=== PATIENT | female | born 1980 | race Caucasian/White ===

== ENCOUNTER 2024-06-13 14:11 | Inpatient (IN) | payer OTHER, SELFPAY ==
--- NOTE | 2024-06-13 11:36 | ED.GENMED ---
History of Present Illness
General
Chief Complaint: Musculo-Skeletal Complaint
Time Seen by Provider: 06/13/24 11:21
History of Present Illness
History of Present Illness:
HPI: The patient presents with severe left hip pain that recently acutely worsened and started about a week ago. She states that she felt that her hip 'popped'. He denies any direct trauma. She has tremendous difficulty walking at this time. She
is on methadone (being weaned down currently on 86 mg daily) and did not take her methadone yet today. She notes the pain is primarily in the medial aspect but also radiates laterally as well.
EXAM:
GENERAL: Well appearing but appears rather uncomfortable
HEENT: Moist oral mucosa
CARDIOVASCULAR: No murmurs, normal heart rate, regular rhythm, No chest wall tenderness
PULMONARY: No respiratory distress, breath sounds are clear and equal
ABDOMEN: Soft with no peritoneal signs, no tenderness
NEUROLOGIC: Excellent strength all extremities, no coordination deficits
PSYCHIATRIC: Appropriate mental status, normal insight and judgement
EXTREMITIES: Markedly decreased active range of motion at the left hip but is currently holding in flexion. Any further active flexion does cause significant pain, she also has pain with passive internal and external rotation of the hip, there is
no findings to suggest septic joint.
SKIN: No rash, no lesions
TIME OF INITIAL ENCOUNTER: 11:30 AM
NUMBER AND COMPLEXITY OF PROBLEMS ADDRESSED AT THE ENCOUNTER
� Chronic conditions affecting care: Currently on methadone, anxiety, anemia
� Acute Exacerbation and/or Progression of Chronic Illness: This is an acute problem
� Differential Diagnosis includes: Hip flexor strain, osteoarthritis, tendinitis, highly doubt septic joint
AMOUNT AND/OR COMPLEXITY OF DATA TO BE REVIEWED AND ANALYZED
� I performed an independent evaluation of and my interpretation is:
EKG:
CT: Pending
X-rays: I personally viewed x-ray of the left hip which shows fracture
Laboratory Studies: CBC unremarkable
Other:
� Review of other/old records: The patient has history of DVT seen here in March 16 treated with Eliquis
� Clinical information was obtained by an independent historian: I spoke to significant other at bedside
� Prescriptions/Medications Considered but not given:
� Further testing considered but not performed:
RISK OF COMPLICATIONS AND/OR MORBIDITY OR MORTALITY OF PATIENT MANAGEMENT
� Social determinants of health affecting care: Lives at home
� Discussion with other providers: Discussed with Dr. Parekh CT imaging for further assessment and plans OR either tomorrow or Monday.
� Escalation of care including admission/observation vs risk of discharge considered: The patient was initially given IM Toradol eyes initially had low suspicion for fracture given her age and no significant mechanism. We did
arrange for methadone to be after pharmacy staff did confirm her dosing. X-ray does show left hip fracture.
Past History
Past History
ED Past Medical History: None
ED Past Surgical History: None
Phy Exam
Physical Exam
Physical Exam:
See HPI
Course
Orders/Labs/Results
Orders:
Orders
06/13/24 11:09
Hip, Left 2-3 Views [CR Hip - LT w/wo Pel 2-3 Vw*] Urgent
Comment:
Reason For Exam: hip pain
Include a pelvis x-ray?: Yes
06/13/24 11:35
Ketorolac [Toradol] 30 mg IM NOW STA
06/13/24 11:58
Methadone HCl [Methadone 100 mg/10 ml] 88 mg PO NOW STA
06/13/24 12:[address] Pelvis W/o Iv Contrast Urgent
Comment:
Reason For Exam: eval L hip fx
Test Result ONCE
06/13/24 12:26
Complete Blood Count/With Diff Urgent
06/13/24 13:27
Basic Metabolic Panel Urgent
HCG, Serum Qualitative Screen Urgent
Magnesium Urgent
Phosphorus Urgent
Comment: MAG AND PHOS ADDED ON BY FLOOR 2:10PM 06-13-24
Vitamin D, 25-Oh Urgent
06/13/24 13:43
Admit/Transfer Patient As Directed
Co-Sign Provider:
Level of Care: Inpatient admission
Assign to:: Telemetry
Physician / Group: Kannan
Diagnosis: Hip Fracture
Reason for Telemetry: Arrhythmia
Date to Stop Telemetry: 06/16/24
Time to Stop Telemetry: 11:00
Reason for Hospitalization: Hip Fracture
Expected length of stay greater than two midnights?: Yes
ELOS- Estimated Length of Stay in days: 3
I certify the patient meets the requirements for IP care: Yes
06/13/24 13:44
PRN Pain Medication Management As Directed
May give lesser potent ordered pain med per pt: Yes
preference::
Protocol:: Medication orders for pain may be administered in a
manner that supports deferring to patient preference
when the pt is:
- Requesting an ordered lesser potent pain medication.
Least to most potent pain medications are defined
as: acetaminophen < NSAID < tramadol < opioids
(morphine, oxycodone, hydromorphone).
- Requesting a lesser dose of the same medication IF
ORDERED.
- Requesting a less intrusive route of administration
if both routes are prescribed by the provider (PO <
IV).
06/13/24 13:45
Code Status As Directed
Resuscitation Status: Full Code
06/13/24 13:48
Add On- LAB Routine
Tests Added?: vitamin d-oh
06/13/24 13:54
ECG [Electrocardiogram (*1)] Urgent
Reason for Study: QTc Monitoring
06/13/24 14:08
HYDROmorphone [Dilaudid] 0.5 mg IV NOW STA
06/13/24 14:11
Add On- LAB Routine
Tests Added?: magnesium, phosphorous
06/13/24 15:20
0.9% Sodium Chloride [Nss (Preservative Free)] See Protocol IV PRN PRN
FOLic ACID [Folvite] 1 mg 0.9% Sodium Chloride 50 ml [Nss] 50 ml IV DAILYPRN
Lorazepam [Ativan] 1 mg IV Q1HPRN PRN
Lorazepam [Ativan] 1 mg PO Q2HPRN PRN
Lorazepam [Ativan] 2 mg IV Q1HPRN PRN
06/13/24 15:20
Case Management Consult Once
Case Management Consult: Other
Comment: Substance abuse counseling
DIETARY CONSULT Routine
Reason for Consult: Nutrition support, possible refeeding guidelines
Activity As Directed
Activity Level: Out of Bed-Early Mobility
With Assistance
I&O [Intake/ Output] As Directed
Frequency: q12h
MSAS SCORE As Directed
MSAS Score 0-4: Repeat MSAS every 2 hours until 0-4 for three consecutive assessments, then every 4 hours x 48
hours.
MSAS Score 5-7: For MILD withdrawl symptoms. Repeat MSAS and RASS every 2 hours
MSAS Score 8-11: For MODERATE withdrawal symptoms. Repeat MSAS and RASS every 1 hour. Consider ICU or IMU
level of care.
MSAS Score > 11: For SEVERE withdrawal symptoms. Repeat MSAS and RASS every 1 hour. Notify provider, consider
ICU level of care.
MSAS Additional Instructions: If no improvement or no decrease in score from severe to moderate within 12
hours, consult psychiatry
MSAS Notify Provider: Notify provider if patient requires more than 10 mg of Lorazepam in eight hour period.
Pneumatic Compression Sleeves As Directed
Type: Knee high
Teds [Anti-embolism (DANIELLE) Hose] As Directed
Type: Knee high
Vital Signs As Directed
Frequency: Per unit guidelines
Weight Bearing Status As Directed
Weight bearing to: Left lower extremity
Type: Non Wt. bearing
DX Deep Vein Thrombosis Video Routine
06/13/24 16:00
Acetaminophen [Tylenol] 1,000 mg PO TID
06/13/24 18:00
Ketorolac [Toradol] 15 mg IV Q6HPRN PRN
06/13/24 20:00
Thiamine Injection 200 mg IV Q12
06/14/24 06:34
Basic Metabolic Panel IN AM
Complete Blood Count/No Diff IN AM
Magnesium IN AM
PTT IN AM
Prothrombin Time IN AM
06/14/24 08:00
Donepezil [Aricept] 5 mg PO DAILY
FOLic ACID [Folvite] 1 mg PO DAILY
Methadone HCl [Methadone 100 mg/10 ml] 88 mg PO DAILY
Methylphenidate HCl [Ritalin] 60 mg PO DAILY
06/14/24 13:51
Ot Eval And Treat Routine
Pt Eval And Treat Routine
Activity Level: Out of Bed-Early Mobility
06/16/24 11:00
DC Protocol for Telemetry ONCE
06/16/24 20:00
Thiamine HCl [Vitamin B1] 100 mg PO BID
Abnormal Lab Results
06/13/24 06/13/24
12:26 13:27
RBC 4.14 L 10^6/uL
(4.20-5.40)
Abs Immat Gran (auto) 0.1 H 10^3/uL
(0-0.05)
Absolute Neuts (auto) 7.0 H 10^3/uL
(1.4-6.5)
Absolute Lymphs (auto) 0.9 L 10^3/uL
(1.2-3.4)
Immature Gran % 0.9 H %
(0-0.5)
Neutrophils % 82.2 H %
(42.2-75.2)
Lymphocytes % 10.6 L %
(20.5-51.1)
Carbon Dioxide 20 L mmol/L
(22-30)
Creatinine 0.4 L mg/dL
(0.6-1.0)
Glucose 146 H mg/dl
(70-99)
Vitamin D 25-Hydroxy 19.8 L ng/mL
(30-80)
06/13/24 12:26
06/13/24 13:27
Vital Signs
Initial and Last Documented VS:
Initial Vital Signs
Temp Pulse Resp Pulse Ox
98.4 F 94 18 98
06/13/24 10:33 06/13/24 10:33 06/13/24 10:33 06/13/24 10:33
Last Documented Vital Signs
Temp Pulse Resp BP Pulse Ox
98.4 F 78 20 134/79 97
06/14/24 07:00 06/14/24 07:00 06/14/24 07:00 06/14/24 07:00 06/14/24 07:45
*Critical Care Note
Total Time (30-74mins, 75-104mins- exclusive of procedures): Not Applicable
ED Attending Note
-
Portions of this chart may have been created with voice recognition software.� Occasional wrong word or��sound alike� substitutions may have occurred due to the inherent limitations of voice recognition software.
Discharge Plan
Departure
Patient Disposition: Admit
Date of Disposition: 06/13/24
Time of Disposition: 13:00
Presentation/result/management discussed w/ accepting MD/DO: Hospitalist
Patient with high blood pressure during this ER visit?: Yes
Discharge Problem:
Hip fracture
Interventions
Interventions:
*Risk Screen - Suicide Last Done: 06/13/24 10:33
*General Assessment Last Done: 06/13/24 10:33
*Neglect/Abuse Screening Last Done: 06/13/24 10:33
ED- Fall Risk Assessment Last Done: 06/13/24 15:23
*ED COVID-19 Vaccine History Last Done: 06/13/24 15:23
*Nursing Disposition Last Done: 06/13/24 15:23
ED-Musculoskeletal Assessment Last Done: 06/13/24 13:28
Discharge Date and Time
Discharge Date/Time: 06/13/24 15:24
[2024-06-13] MEDS: TORADOL 30 MG IM (12:10)
[2024-06-13] MEDS: METHADONE 100 MG/10 ML 88 MG PO (12:17)
[2024-06-13 12:51] LABS: % Basophils 0.7 % (0-2); % Eosinophils 0.8 % (0-6); % Immature Granulocytes 0.9 % (0-0.5); % Lymphocytes 10.6 % (20.5-51.1); % Monocytes 4.8 % (1.7-9.3); % Neutrophils 82.2 % (42.2-75.2); Absolute Basophils 0.1 10^3/uL (0-0.2); Absolute Eosinophils 0.1 10^3/uL (0-0.7); Absolute Immature Granulocytes 0.1 10^3/uL (0-0.05); Absolute Lymphocytes 0.9 10^3/uL (1.2-3.4); Absolute Monocytes 0.4 10^3/uL (0.1-0.6); Hematocrit 37.7 % (37.0-47.0); Hemoglobin 12.7 g/dL (12.0-16.0); Mean Corp Hgb Conc. 33.7 g/dL (33.0-37.0); Mean Corpuscular Hgb 30.7 pg (27.0-31.0); Mean Corpuscular Volume 91.1 fL (81.0-99.0); Mean Platelet Volume 9.7 fL (7.4-10.4); Nucleated Red Blood Cells % 0 %; Platelet Count 305 10^3/uL (130-400); Red Blood Cell Count 4.14 10^6/uL (4.20-5.40); Red Cell Dist. Width 13.8 % (11.5-14.5); White Blood Cell Count 8.5 10^3/uL (4.8-10.8)
--- NOTE | 2024-06-13 13:17 | HPS.HSE ---
Addendum entered and electronically signed by Christina Delgado PA-C 06/13/24 15:00:
Correction:
Patient now reports not taking Lamictal for several weeks - Would not resume at this time.
Original Note:
Family Physician
-
Family Physician: Ladarius Santoyo
Chief Complaint
-
Left Hip Pain
History of Present Illness
Patient is a 43 y/o female past medical history of bipolar disorder and opioid use disorder who presents with left hip pain. Patient report she has been experiencing some hip pain for about a week. Today when she was walking out to the car she
heard a 'pop' and developed acute worsening of the pain. She then felt a second 'pop' and fell catching herself with hands. She is unable to ambulate and presented to the emergency department for evaluation.
Medical History
Past Medical History
Past Medical History: Reports Other
Additional Past Medical History:
Anxiety / Depression / Bipolar Disorder
Opioid Use Disorder
ADHD
Past Surgical History: Reports Gynocological ( Section, Salpingectomy)
Social History
Tobacco: Vaping
Alcohol: Daily (6 cans of beer nightly)
Drug: Former User
Family History
Family History: Not pertinent
Allergies / Home Medications
Allergies reflects when Allergies were last updated in [facility].
Home Medications with original date entered in [facility]
Allergy/Medication List:
Allergies
Allergy/AdvReac Type Severity Reaction Status Date / Time
No Known Allergies Allergy Verified 06/13/24 10:33
Home Medications
methadone 10 mg/5 mL oral solution 88 mg PO DAILY ##0 05/01/18
donepezil 5 mg tablet 5 mg PO DAILY 06/13/24
methylphenidate HCl 20 mg tablet 20 mg PO TID 06/13/24
Review of Systems
-
A 12 point ROS was completed and negative except as noted: Yes
Constitutional: Denies Fever or Chills
Respiratory: Denies Cough or Trouble Breathing
Cardiac: Denies Chest Pain or Palpitations
Abdomen/GI: Reports Constipated (Intermittent); Denies Abdominal Pain, Nausea or Vomiting
Physical Exam
Vital Signs
Vital Signs
Temp Pulse Resp Pulse Ox
98.4 F 94 18 98
06/13/24 10:33 06/13/24 10:33 06/13/24 10:33 06/13/24 10:33
Physical Exam
General: Comfortable and Conversant
HEENT: Anicteric and Moist mucous membranes
Respiratory: Clear and Non Labored Respirations
Cardiac: S1/S2 and Regular Rhythm
GI: Soft, Non Tender and Other (Protuberant)
Rectal: Deferred by Provider
Musculoskeletal: No Clubbing, No Cyanosis, No Edema and Other (Decreased range of motion left hip due to pain)
Skin: Warm and Dry
Neuro: Awake, Alert, Oriented and Nonfocal/grossly intact
Psych: Calm
Laboratory Results
-
06/13/24 12:26
Data Reviewed
-
Diagnostic Radiology: Report Reviewed by me
Lab Data: Labs Reviewed by me
Impression/Plan
-
Left Hip Fracture
-Consult Ortho
-Check CT Scan
-Pain management will use Toradol for mild pain, Dilaudid for moderate/severe pain
Opioid Use Disorder
-Continue Methadone
ADHD
-Continue methylphenidate if patient bring from home
-Continue donepezil
Anxiety / Depression / Bipolar Disorder
-Continue Lamictal
Alcohol Use Disorder
-Continue alcohol withdrawal protocol
DVT proph: SCDs
Code Status: Full Code
[2024-06-13 13:24] VITALS: BP 132/82
[2024-06-13 13:49] LABS: HCG, Serum Qualitative Screen Negative
--- NOTE | 2024-06-13 13:50 | W.PN.UPDATE ---
Update Note
Progress Note Update
This is an addendum to H&P written by KRISTYN Delgado
I saw and examined the patient.
The DRY LUMBER GRADER's note was reviewed and I agree with the note.
Comment:
Ms. Sanam Juárez is a 43 yo woman with hx oxycodone abuse now on Methadone, who presents to the ER with severe left hip pain. She denies direct trauma. She noticed discomfort about a week ago with severe worsening today.
Triage VS: T 98.4, P 94, RR 18, SpO2 98%
On exam patient appears uncomfortable 2/2 pain, no LE swelling, lungs clear.
LABS: WBC 8.5, Hg 12.7, PLT 305, Na 137, K+ 4.4, CO2 20, BUN 8, Cr 0.4, Glucose 146
Hip X-Ray
IMPRESSION:
Acute comminuted transcervical fracture of the left femoral neck without significant displacement or angulation. No dislocation.
Cortical thickening of the visualized left femur which appears relatively symmetric. There is no focal lesion. This finding is nonspecific, and can be secondary to medications or normal biomechanical stresses. The right proximal femur is not
visualized, so contralateral comparison cannot be made.
Left Hip Fracture
-without history of trauma. concern for Osteoporosis -may be related to chronic opiate/methadone use?/alcohol use - check vitamin d-oh
-Dr. Quinones aware of admission, recommending CT Hip
-for pain control - will continue home Methadone. Patient looks to be in significant discomfort - OK with receiving opiates for pain here
Alcohol Abuse
-patient drinks 6 beers/night
-MSAS
-monitor electrolytes
-IVF
Hx Opiate Abuse on Methadone
DVT PPx SCD
76 minutes spent on patient care
[2024-06-13 13:52] LABS: Blood Urea Nitrogen 8 mg/dl (7-17); Calcium 9.2 mg/dl (8.4-10.2); Carbon Dioxide 20 mmol/L (22-30); Chloride 102 mmol/L (98-107); Glucose 146 mg/dl (70-99); Potassium 4.4 mmol/L (3.5-5.1); Sodium 137 mmol/L (135-145); eGFR > 60.00
[2024-06-13] MEDS: DILAUDID 0.5 MG IV ×3 (14:30→17:06)
[2024-06-13] MEDS: NSS 1000 IV ×2 (14:31→15:58)
[2024-06-13 14:47] LABS: Magnesium 1.8 mg/dl (1.6-2.3); Phosphorus 2.6 mg/dl (2.5-4.5)
[2024-06-13 15:05] LABS: Vitamin D, 25-OH*** 19.8 ng/mL (30-80)
[2024-06-13 15:47] VITALS: BP 134/84; BMI 34.6
[2024-06-13] MEDS: TYLENOL 1000 MG PO ×2 (16:08→21:20)
--- NOTE | 2024-06-13 16:44 | CON.ORTHO ---
Consultation
-
Date/Time Consultation Performed: [id number] 16:44
Requesting Provider: Monique
Performing Provider: Demarcus Vanegas
Reason for Consultation: left hip fracture
Consultation - Orthopedics
History
Ms Juárez is a 43F with a history of bipolar, opioid abuse with a one week history of left hip pain with acute exacerbation this morning. She report sleeping with her leg off the couch and awakening to left hip pain one week prior to presentation,
but she was able to ambulate with assistance of a crutch. She did not seek treatment for this. This morning when exiting her home she reports atraumatic onset of left hip pain which caused her to fall. She was unable to ambulate and was brought to
the ED. XR and CT obtained there were notable for left hip basicervical femoral neck fracture. She denies tripping or stumbling, twisting the hip, or any other provocative action. She denies open wounds, bleeding, numbness or tingling in her
affected extremity. She has not had any prior left hip injury or surgery, but she does have a history of a left Achilles rupture treated non-operatively.
Examination: left lower extremity
Inspection: skin intact without erythema
Palpation: tenderness to palpation about left hip, medial knee
Range of motion: deferred secondary to pain
Strength: Deferred at hip and knee, 5/5 ankle plantar/dorsiflexion, EHL/FHL
Stability; Knee stable to varus/valgus stress
Sensation: Intact to light touch in all dermatomes
Vascular:Palpable DP/PT pulses, brisk capillary refill
Allergies / Home Medications
Allergy/AdvReac Type Severity Reaction Status Date / Time
No Known Allergies Allergy Verified 06/13/24 10:33
�Medication �Instructions �Recorded
methadone 10 mg/5 mL oral solution 88 mg PO DAILY ##0 05/01/18
donepezil 5 mg tablet 5 mg PO DAILY 06/13/24
methylphenidate HCl 20 mg tablet 20 mg PO BID 06/13/24
Vital Signs / Lab Results
Temp Pulse Resp BP Pulse Ox
98.4 F 76 18 134/84 96
06/13/24 15:47 06/13/24 15:47 06/13/24 15:47 06/13/24 15:47 06/13/24 15:47
06/13/24 12:26
06/13/24 13:27
Assessment / Plan
Ms Juárez is a 43F with left basicervical femoral neck fracture. Due to the risk of decreased functional status and prolonged recumbency in patients treated non-operatively, the patient has elected for operative treatment of her fracture. We will
opt for closed versus open reduction and internal fixation with a sliding hip screw. The patient has consented to surgery and blood transfusions if necessary. We will begin chemical DVT prophylaxis the morning after surgery and physical DVT
prophylaxis immediately postop. All questions were asked and answered. Rest of management per primary.
[2024-06-13] MEDS: VITAMIN D3 (cholecalciferol) 25 MCG PO (17:06)
[2024-06-13] MEDS: ATIVAN 1 MG PO ×2 (17:51→20:15)
--- NOTE | 2024-06-13 17:56 | PTCARENOTE ---
Patient admitted to room 407-01 from ER. Patient oriented to room and use of call dawkins and television and bed controls. Patient verbalizes understanding of all teaching. Understands that she is non weight bearing on left leg and on bedrest. Bed
alarm in place. Vital signs stable. Vape pen sent to security and contacted MD for nicotine patch. Patient given 1 mg po of ativan for MSAS score of 5. Medicated with dilaudid for pain as ordered and given one time order for pain relief in addition
to medication ordered as per MD. Dilaudid dose increased for future as per MD. Patient verbalizes understanding plan of care. Patient for surgical hip repair tomorrow. Denies questions at this time.
[2024-06-13] MEDS: NICODERM TRANSDERMAL 14 MG TRANSDERM (18:21)
[2024-06-13 19:25] VITALS: BP 119/72
[2024-06-13] MEDS: THIAMINE INJECTION 200 MG IV (20:14)
[2024-06-13] MEDS: DILAUDID 1 MG IV ×2 (20:15→23:15)
[2024-06-13] MEDS: FLUSH (NSS) 2 FLUSH IV (20:17)
[2024-06-13] MEDS: FLUSH (NSS) 1 FLUSH IV (23:16)
[2024-06-13 23:27] VITALS: BP 155/96
[2024-06-14] VITALS (13 sets, daily range): BP systolic 129–159; BP diastolic 69–112
[2024-06-14] MEDS: DILAUDID 1 MG IV ×4 (02:19→22:15)
[2024-06-14] MEDS: NSS 1000 IV (04:38)
[2024-06-14] MEDS: TORADOL 15 MG IV ×2 (05:55→20:36)
[2024-06-14 07:27] LABS: Hematocrit 35.1 % (37.0-47.0); Hemoglobin 11.6 g/dL (12.0-16.0); Mean Corpuscular Volume 90.7 fL (81.0-99.0); Mean Platelet Volume 10.2 fL (7.4-10.4); Platelet Count 303 10^3/uL (130-400); Red Blood Cell Count 3.87 10^6/uL (4.20-5.40); Red Cell Dist. Width 14.5 % (11.5-14.5); White Blood Cell Count 8.3 10^3/uL (4.8-10.8)
[2024-06-14 07:28] LABS: INR 1.16; PT 14.8 Sec (11.4-14.6)
[2024-06-14 07:29] LABS: APTT 30.1 Sec (23.4-35.0)
[2024-06-14] MEDS: NICODERM TRANSDERMAL 14 MG TRANSDERM (07:51)
[2024-06-14] MEDS: METHADONE 100 MG/10 ML 88 MG PO (07:51)
[2024-06-14] MEDS: RITALIN 60 MG PO (07:52)
[2024-06-14] MEDS: VITAMIN D3 (cholecalciferol) 25 MCG PO (07:52)
[2024-06-14] MEDS: THIAMINE INJECTION 200 MG IV ×2 (07:52→20:12)
[2024-06-14] MEDS: ARICEPT 5 MG PO (07:53)
[2024-06-14] MEDS: MIRALAX PO (07:53)
[2024-06-14] MEDS: FOLVITE 1 MG PO (07:53)
[2024-06-14 08:07] LABS: Blood Urea Nitrogen 10 mg/dl (7-17); Calcium 8.7 mg/dl (8.4-10.2); Carbon Dioxide 19 mmol/L (22-30); Chloride 105 mmol/L (98-107); Estimated Creatinine Clearance > 125 ml/min; Glucose 133 mg/dl (70-99); Potassium 4.1 mmol/L (3.5-5.1); Sodium 142 mmol/L (135-145); eGFR > 60.00
[2024-06-14] MEDS: TYLENOL 1000 MG PO ×2 (09:04→21:05)
[2024-06-14 09:47] LABS: ALT (SGPT) 20 U/L (0-35); AST (SGOT) 54 U/L (14-36); Albumin 3.9 g/dl (3.5-5.0); Alkaline Phosphatase 106 U/L (38-126); Direct Bilirubin 0.4 mg/dl (0.0-0.4); Total Bilirubin 0.7 mg/dl (0.2-1.3); Total Protein 6.8 g/dl (6.3-8.2)
--- NOTE | 2024-06-14 10:14 | W.PN.HOSP.TC ---
Today's Communication/Plan
-
See PN
Assessment / Plan
Assessment / Plan
43yo F with PMHx of heroin abuse now on methadone, alcohol abuse came with L femoral Fx
Had L hip pain started days ago after she found her leg caught in between ottoma and sofa while sleeping, now before admission felt pop while walking and could not bear weight with pain anymore on her LLE. Drinking 6-packs nightly
A/P:
#Acute traumatic comminuted transcervical fractre of the L femoral neck, traumatic, unclear if underlying osteoporosis
Pain mgmt
Ortho for surgical repair
Outpatient bone scan with PCP advised - patient verbalized understanding
#Alcohol use disorder with withdrowal
Thiamine/FOlate
MSAS protocol
Taper valium due to significant tremors
watch for DT
D5LR
follow and replete elctrolyts
#Opioid replacement therapy
#ADHD
cont home meds
#mild anemia
follow with PCP upon d/c
#Mild AST elevation
2/2 alcohol abuse
#Vit D deficiency
replete
#Nicotine dependency
Nicoderm
counselled on cessation
DVT ppx on hep
Full code
I have spent at least 58min reviewing chart, test results, communication with consultants and direct patient care
Anticipated Discharge: > 48 hours
Subjective/Interval History
-
Date of Service: June 14, 2024
Objective Data
-
Labs:
Laboratory Results
06/14/24
06:34
WBC 8.3
Hgb 11.6 L
Hct 35.1 L
Plt Count 303
PT 14.8 H
INR 1.16
APTT 30.1
Sodium 142
Potassium 4.1
Chloride 105
Carbon Dioxide 19 L
BUN 10
Creatinine 0.5 L
Glucose 133 H
Calcium 8.7
Total Bilirubin 0.7
AST 54 H
ALT 20
Alkaline Phosphatase 106
Vital Signs:
Vital Signs
Temp Pulse Resp BP Pulse Ox
98.4 F 78 20 134/79 98
06/14/24 07:00 06/14/24 07:00 06/14/24 07:00 06/14/24 07:00 06/14/24 09:58
I&O
06/13/24 06/14/24 06/15/24
06:59 06:59 06:59
Intake Total 1620 / 1620
Output Total 450 / 450
Balance 1170 / 1170
Review of Systems
-
History Source: Patient
All other systems: Reviewed and negative
Physical Exam
-
General: No Apparent Distress and Pain
HEENT: Moist Mucous Membranes
Respiratory: Clear to Auscultation
Cardiac: Regular Rhythm
GI: Soft, Nontender and Nondistended
Musculoskeletal: No Clubbing, No Cyanosis and No Edema
Skin: Warm
Neuro: Awake, Alert, Oriented and AO x 3
Psych: Calm
[2024-06-14] MEDS: VALIUM 10 MG PO ×2 (10:35→21:07)
[2024-06-14] MEDS: DRISDOL (VITAMIN D2) 50000 UNITS PO (10:57)
[2024-06-14] MEDS: D5LR 1000 IV (10:57)
[2024-06-14 12:30] LABS: Hepatitis C Antibody Negative (Negative)
--- NOTE | 2024-06-14 12:33 | W.PN.ORTHO ---
Today's Communication / Plan
-
NPO for OR this afternoon
Please hold anticoagulation until POD#1
PT eval POD#1
Assessment
.
Distal Motor Intact: Yes
Assessment:
43F with left femoral neck fracture
Plan
.
Activity:
Out of bed.
PT/OT
Subjective
.
.:
Patient resting comfortably. States pain well controlled when in bed. Denies new complaints.
Vital Signs and Labs
.
Vital Signs and Labs:
Lab Results
06/14/24 06:34
06/14/24 06:34
Temp Pulse Resp BP Pulse Ox
98.2 F 105 20 140/95 94
06/14/24 11:00 06/14/24 11:00 06/14/24 11:00 06/14/24 11:00 06/14/24 11:00
PT 14.8 Sec (11.4-14.6) H 06/14/24 06:34
INR 1.16 06/14/24 06:34
Physical Exam
-
Sensation intact distally, palpable pulses with brisk capillary refill, 5/5 EHL/FHL/dorsi/plantarflexion
--- NOTE | 2024-06-14 13:26 | PTCARENOTE ---
Second CHG wipe bath completed. Pneumatic stockings on. Report given to OR. Patient transported to OR by OR staff.
--- NOTE | 2024-06-14 16:33 | CM ---
CM attempted to speak with Sanam today, however she was off the floor for surgery. CM will follow up in AM to complete IA.
--- NOTE | 2024-06-14 17:18 | W.IMMPOSTOP ---
Surgical Immed Post Op Note
-
Primary Surgeon: Demarcus Vanegas MD
Reconsignment Clerk: KRISTYN Harris
Pre-op Diagnosis: left femoral neck fracture
Post-op Diagnosis: left femoral neck fracture
Procedure Performed: left hip closed reduction and internal fixation
Anesthesia Type: general endotracheal
Specimen / Cultures: none
Estimated Blood Loss: 200mL
Complications: none
Operative Findings: left femoral neck fracture
Implants: Do Robbins 3 135 degree 3 hole standard barrel plate, 85mm standard leg screw, 32.3mm compression screw, 38mm cortical screw x3
Dictation # [id number]
[2024-06-14] MEDS: DILAUDID 0.5 MG IV (17:34)
[2024-06-14] MEDS: VALIUM PO ×2 (18:35→21:05)
[2024-06-14] MEDS: NORMOSOL-R/PLASMALYTE-A 1000 IV ×3 (18:37→20:10)
--- NOTE | 2024-06-14 18:38 | PTCARENOTE ---
pt to floor at 1830. ETT GA EBL 200, local to site. Norm 100 via 20g RW. Family in room
[2024-06-14] MEDS: TYLENOL PO (20:11)
[2024-06-14] MEDS: COLACE 100 MG PO (20:12)
[2024-06-14] MEDS: ATIVAN 1 MG PO ×2 (20:30→22:43)
[2024-06-14] MEDS: ANCEF 5 IV (21:05)
[2024-06-14] MEDS: D5LR IV (23:08)
[2024-06-15] VITALS (7 sets, daily range): BP systolic 108–143; BP diastolic 60–98; PULSE 138; O2SAT 96
[2024-06-15] MEDS: ATIVAN 1 MG PO ×3 (00:51→22:47)
[2024-06-15] MEDS: ANCEF 5 IV (06:16)
[2024-06-15] MEDS: NORMOSOL-R/PLASMALYTE-A 1000 IV ×5 (06:18→17:06)
--- NOTE | 2024-06-15 06:27 | PTCARENOTE ---
18306/14 held Valium 10mg d/t pt be sedated and unable to stay awake. o/n nurse stated would verify with provided if it was needed at all or just give when awake.
[2024-06-15 07:02] LABS: ALT (SGPT) 18 U/L (0-35); AST (SGOT) 56 U/L (14-36); Albumin 3.3 g/dl (3.5-5.0); Alkaline Phosphatase 86 U/L (38-126); Blood Urea Nitrogen 10 mg/dl (7-17); Calcium 7.9 mg/dl (8.4-10.2); Carbon Dioxide 25 mmol/L (22-30); Chloride 102 mmol/L (98-107); Estimated Creatinine Clearance > 125 ml/min; Glucose 121 mg/dl (70-99); Magnesium 2.2 mg/dl (1.6-2.3); Sodium 137 mmol/L (135-145); Total Bilirubin 0.6 mg/dl (0.2-1.3); eGFR > 60.00
[2024-06-15 08:02] LABS: % Basophils 0.5 % (0-2); % Eosinophils 0.8 % (0-6); % Immature Granulocytes 0.9 % (0-0.5); % Lymphocytes 15.2 % (20.5-51.1); % Monocytes 5.1 % (1.7-9.3); % Neutrophils 77.5 % (42.2-75.2); Absolute Eosinophils 0.1 10^3/uL (0-0.7); Absolute Immature Granulocytes 0.1 10^3/uL (0-0.05); Absolute Lymphocytes 1.3 10^3/uL (1.2-3.4); Absolute Monocytes 0.4 10^3/uL (0.1-0.6); Absolute Neutrophils 6.6 10^3/uL (1.4-6.5); Hematocrit 28.2 % (37.0-47.0); Hemoglobin 9.2 g/dL (12.0-16.0); Mean Corp Hgb Conc. 32.6 g/dL (33.0-37.0); Mean Corpuscular Hgb 29.8 pg (27.0-31.0); Mean Corpuscular Volume 91.3 fL (81.0-99.0); Mean Platelet Volume 10.1 fL (7.4-10.4); Nucleated Red Blood Cells % 0 %; Platelet Count 291 10^3/uL (130-400); Red Blood Cell Count 3.09 10^6/uL (4.20-5.40); Red Cell Dist. Width 14.4 % (11.5-14.5); White Blood Cell Count 8.6 10^3/uL (4.8-10.8)
[2024-06-15] MEDS: VALIUM 10 MG PO ×3 (09:39→22:39)
[2024-06-15] MEDS: RITALIN 60 MG PO (09:40)
[2024-06-15] MEDS: METHADONE 100 MG/10 ML 88 MG PO (09:41)
[2024-06-15] MEDS: NICODERM TRANSDERMAL 14 MG TRANSDERM (09:43)
[2024-06-15] MEDS: MIRALAX 17 GRAMS PO (09:45)
[2024-06-15] MEDS: THIAMINE INJECTION 200 MG IV ×2 (09:48→20:14)
[2024-06-15] MEDS: ARICEPT 5 MG PO (09:49)
[2024-06-15] MEDS: VITAMIN D3 (cholecalciferol) 25 MCG PO (09:50)
[2024-06-15] MEDS: TYLENOL 1000 MG PO ×3 (09:50→22:38)
[2024-06-15] MEDS: LOVENOX SC ×2 (09:50→20:55)
[2024-06-15] MEDS: COLACE 100 MG PO ×2 (09:50→20:14)
[2024-06-15] MEDS: FOLVITE 1 MG PO (09:51)
[2024-06-15] MEDS: ROXICODONE 5 MG PO (09:52)
--- NOTE | 2024-06-15 11:07 | PTCARENOTE ---
pt's IV was removed d/t to pain and infiltration. awaiting IV team to replace. MSAS scaore up to 7 can not administered Ativan HR. 146-150, doctor is in room and is aware of HR. NNO.
[2024-06-15] MEDS: ATIVAN 1 MG IV ×2 (11:17→14:16)
[2024-06-15] MEDS: TORADOL 15 MG IV ×2 (11:21→17:39)
--- NOTE | 2024-06-15 11:25 | W.PN.ORTHO ---
Today's Communication / Plan
-
43-year-old female postop day [address] Vaneg[address]
Weightbearing as tolerated to left lower extremity
PT/OT, assist devices as indicated
Discharge planning
Recommend Lovenox for DVT prophylaxis; aspirin otherwise or per primary with history of DVT
Diet per primary
Pain controlled with current regimen
Orthopedic surgery will continue to follow
Assessment
.
Distal Motor Intact: Yes
Dressing:
Clean, dry and intact. Mild central strikethrough
Assessment:
Postoperative images show status post left dynamic hip screw without evidence of hardware or osseous complication
Plan
.
Surgery / Date: L hip DHS 06/14/24 w/ Dr. Vanegas
DVT Prophylaxis: Lovenox
Activity:
Out of bed.
PT/OT
Subjective
.
.:
Patient resting comfortably.
Vital Signs and Labs
.
Vital Signs and Labs:
Lab Results
06/15/24 06:03
06/15/24 06:03
Temp Pulse Resp BP Pulse Ox
98.3 F 145 18 138/98 98
06/15/24 10:36 06/15/24 10:36 06/15/24 10:36 06/15/24 10:36 06/15/24 10:57
PT 14.8 Sec (11.4-14.6) H 06/14/24 06:34
INR 1.16 06/14/24 06:34
Physical Exam
-
Examination left lower extremity shows intact dressing. No surrounding erythema. Equal limb length. Neurovascularly intact distally L5-S1
[2024-06-15] MEDS: NORMOSOL-R/PLASMALYTE-A IV (11:27)
[2024-06-15] MEDS: LOVENOX 30 MG SC (11:29)
--- NOTE | 2024-06-15 12:10 | W.PN.HOSP.TC ---
Today's Communication/Plan
-
cont mgmt of withdrawal
Assessment / Plan
Assessment / Plan
43yo F with PMHx of heroin abuse now on methadone, alcohol abuse came with L femoral Fx
Had L hip pain started days ago after she found her leg caught in between ottoma and sofa while sleeping, now before admission felt pop while walking and could not bear weight with pain anymore on her LLE. Drinking 6-packs nightly
A/P:
#Acute traumatic comminuted transcervical fractre of the L femoral neck, traumatic, unclear if underlying osteoporosis
Pain mgmt
Ortho s/p OR on 06/14/24 - Lovenox BID for 4 weeks, RN to teach
Outpatient bone scan with PCP advised - patient verbalized understanding
#Alcohol use disorder with withdrawal
Thiamine/Folate
MSAS protocol
Taper valium due to significant tremors
watch for DT
D5LR
follow and replete electrolytes
#Opioid replacement therapy
#ADHD
cont home meds
#mild anemia
follow with PCP upon d/c
#Mild AST elevation
2/2 alcohol abuse
#Vit D deficiency
replete
#Nicotine dependency
Nicoderm
counselled on cessation
DVT ppx on hep
Full code
I have spent at least 38min reviewing chart, test results, communication with consultants and direct patient care
Anticipated Discharge: 24 - 48 hours
Subjective/Interval History
-
Date of Service: June 15, 2024
Objective Data
-
Labs:
Laboratory Results
06/15/24
06:03
WBC 8.6
Hgb 9.2 L D
Hct 28.2 L
Plt Count 291
Sodium 137
Potassium 4.0
Chloride 102
Carbon Dioxide 25
BUN 10
Creatinine 0.5 L
Glucose 121 H
Calcium 7.9 L
Total Bilirubin 0.6
AST 56 H
ALT 18
Alkaline Phosphatase 86
Vital Signs:
Vital Signs
Temp Pulse Resp BP Pulse Ox
98.3 F 145 18 138/98 98
06/15/24 10:36 06/15/24 10:36 06/15/24 10:36 06/15/24 10:36 06/15/24 10:57
I&O
06/14/24 06/15/24 06/16/24
06:59 06:59 06:59
Intake Total 1620 / 1620 2480 / 2480
Output Total 450 / 450 350 / 350
Balance 1170 / 1170 2130 / 2130
Review of Systems
-
History Source: Patient
All other systems: Reviewed and negative
Physical Exam
-
General: No Apparent Distress
HEENT: Normocephalic
Cardiac: Regular Rhythm and Tachycardic
GI: Soft, Nontender and Nondistended
Skin: Warm
Neuro: Awake, Alert, Oriented and AO x 3
Psych: Calm
[2024-06-15] MEDS: VALIUM 5 MG PO ×3 (12:49→22:39)
--- NOTE | 2024-06-15 15:13 | CM ---
CM met with pt at bedside.
Prior to admission pt lives with spouse and 2 kids in a 2SH bedroom/bathroom on 2nd floor.
Confirmed PCP is Dr. Ladarius Santoyo and pharmacy is [facility] in [place] on [address].
Confirmed insurance is [employer].
CM inquired about pt drug/etoh abuse. Told last drank alcohol 06/12. Drinks lager. Drinks approx 6 beers/day. Pt has a history of heroin abuse. Has been on methadone for the past 4 1/2 years which was her last relapse. Relapsed 4 years prior to that.
She currently gets her methadone at her Clinic. Plan is to switch to suboxone once weaned.
Pt declines etoh resources. Says has already spoken to someone today about it-does not have their name. She plans to follow up with her clinic, [facility] when discharged.
Pt reports currently going through withdrawal. Appears tremulous. CM/SW to follow up and assist.
[2024-06-15] MEDS: ROXICODONE 10 MG PO (16:56)
[2024-06-15 20:11] LABS: Hemoglobin 9.1 g/dL (12.0-16.0)
[2024-06-16] VITALS (7 sets, daily range): BP systolic 119–141; BP diastolic 67–89; PULSE 111; O2SAT 98
--- NOTE | 2024-06-16 00:27 | W.PN.UPDATE ---
Update Note
Progress Note Update
RN notified READING INTERVENTIONIST patient had a BM with blood clot in it and noted bright red blood on wipe, Also patient stated having her period three days ago, s/p left hip replacement 06/16 is on Toradol q6h and Lovenox BID. Hgb drop from 11.6 to 9.2 this AM. Will
order heme stool, H&H, hold off Lovenox, and stop IV Toradol.
Hgb at 9.1/27.0
CBC AM.
stable VS, no new complaints.
[2024-06-16] MEDS: ATIVAN 1 MG PO ×2 (00:47→20:21)
[2024-06-16] MEDS: ROXICODONE 10 MG PO ×2 (02:19→18:21)
[2024-06-16 06:31] LABS: % Eosinophils 5.1 % (0-6); % Immature Granulocytes 1.3 % (0-0.5); % Monocytes 6.2 % (1.7-9.3); % Neutrophils 60.4 % (42.2-75.2); Absolute Basophils 0.1 10^3/uL (0-0.2); Absolute Eosinophils 0.3 10^3/uL (0-0.7); Absolute Immature Granulocytes 0.1 10^3/uL (0-0.05); Absolute Lymphocytes 1.5 10^3/uL (1.2-3.4); Absolute Monocytes 0.4 10^3/uL (0.1-0.6); Absolute Neutrophils 3.6 10^3/uL (1.4-6.5); Hematocrit 25.5 % (37.0-47.0); Hemoglobin 8.2 g/dL (12.0-16.0); Mean Corp Hgb Conc. 32.2 g/dL (33.0-37.0); Mean Corpuscular Hgb 29.5 pg (27.0-31.0); Mean Corpuscular Volume 91.7 fL (81.0-99.0); Mean Platelet Volume 10.4 fL (7.4-10.4); Nucleated Red Blood Cells % 0 %; Platelet Count 266 10^3/uL (130-400); Red Blood Cell Count 2.78 10^6/uL (4.20-5.40); Red Cell Dist. Width 14.6 % (11.5-14.5); White Blood Cell Count 5.9 10^3/uL (4.8-10.8)
[2024-06-16 07:04] LABS: ALT (SGPT) 17 U/L (0-35); AST (SGOT) 61 U/L (14-36); Albumin 3.1 g/dl (3.5-5.0); Alkaline Phosphatase 76 U/L (38-126); Blood Urea Nitrogen 11 mg/dl (7-17); Carbon Dioxide 25 mmol/L (22-30); Chloride 103 mmol/L (98-107); Estimated Creatinine Clearance > 125 ml/min; Glucose 141 mg/dl (70-99); Potassium 3.4 mmol/L (3.5-5.1); Sodium 140 mmol/L (135-145); Total Bilirubin 0.4 mg/dl (0.2-1.3); Total Protein 5.6 g/dl (6.3-8.2); eGFR > 60.00
[2024-06-16 07:37] LABS: Hematocrit 25.8 % (37.0-47.0); Hemoglobin 8.6 g/dL (12.0-16.0)
[2024-06-16] MEDS: MIRALAX 17 GRAMS PO (07:44)
[2024-06-16] MEDS: ARICEPT 5 MG PO (07:45)
[2024-06-16] MEDS: VITAMIN D3 (cholecalciferol) 25 MCG PO (07:45)
[2024-06-16] MEDS: RITALIN 20 MG PO (07:45)
[2024-06-16] MEDS: TYLENOL 1000 MG PO ×2 (07:46→17:43)
[2024-06-16] MEDS: COLACE 100 MG PO ×2 (07:47→20:11)
[2024-06-16] MEDS: FOLVITE 1 MG PO (07:47)
[2024-06-16] MEDS: KCL 20 MEQ PO (07:47)
[2024-06-16] MEDS: ROXICODONE 5 MG PO ×2 (07:48→13:18)
[2024-06-16] MEDS: VALIUM 5 MG PO ×2 (07:48→13:16)
[2024-06-16] MEDS: NICODERM TRANSDERMAL 14 MG TRANSDERM (07:48)
[2024-06-16] MEDS: PROTONIX IV 40 MG IV ×2 (07:51→20:11)
[2024-06-16] MEDS: NSS (PRESERVATIVE FREE) 10 ML IV ×2 (07:51→20:11)
[2024-06-16] MEDS: THIAMINE INJECTION 200 MG IV (07:51)
[2024-06-16] MEDS: METHADONE 100 MG/10 ML 88 MG PO (07:52)
[2024-06-16 07:54] LABS: Magnesium 2.1 mg/dl (1.6-2.3)
--- NOTE | 2024-06-16 09:00 | CON.GI ---
Consultation
-
Date/Time Consultation Performed: 06/16/24
Performing Provider: Shaji King MD
Reason for Consultation: rectal bleeding
Medical History
Chief Complaint / HPI
Chief Complaint: rectal bleeding
History of Present Illness:
The patient is a 43-year-old female with past medical history as noted who presents after fall with left hip fracture. We are consulted for rectal bleeding and decrease in hemoglobin. She had about a 2 g drop around the day of surgery, and then
has slowly drifted down since there. Last night she had a bowel movement and noticed some bright red blood when she wiped, though has had no bloody bowel movements, melena or hematochezia. She had been a bit constipated recently. She had been
constipated in the past on methadone dose has been doing better recently. She does not usually see GI though did have a history of hepatitis C treated with the [facility] several years ago with eradication. She is no family history of
inflammatory bowel disease or colon cancer. She is never had an endoscopy or colonoscopy.
Past Medical History
Past Medical History: Other (Bipolar, anxiety, depression, ADHD, opioid use, Hep C s/p tx with [facility])
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
Social History
Tobacco: Vaping
Alcohol: Daily
Family History
Family History: Reviewed & Not Pertinent
Allergies / Home Medications
Allergy/AdvReac Type Severity Reaction Status Date / Time
No Known Allergies Allergy Verified 06/13/24 10:33
�Medication �Instructions �Recorded
methadone 10 mg/5 mL oral solution 88 mg PO DAILY ##0 05/01/18
donepezil 5 mg tablet 5 mg PO DAILY 06/13/24
methylphenidate HCl 20 mg tablet 20 mg PO BID 06/13/24
Review of Systems
-
All other systems: A 12 pt ROS was Negative except as stated above in HPI
Vital Signs
Temp Pulse Resp BP Pulse Ox
98.0 F 107 18 119/81 98
06/16/24 07:05 06/16/24 07:05 06/16/24 07:05 06/16/24 07:05 06/16/24 07:05
Physical Exam
Exam
General: NAD
HEENT: MMM, anicteric, no lymphadenopathy
Heart: Regular, no murmurs
Lungs: CTA bilaterally
Abdomen: normal bowel sounds, soft, no tenderness, no rebound or guarding, no masses, bruits or ascites
Extremeties: no edema, strikethrough with ecchymosis around bandage on left femur
Skin: no rashes
With consent chaperoned rectal exam showed no obvious pathology, no perianal fissure, abscess, fistula, mass or blood in the vault.
Results
WBC 5.9 10^3/uL (4.8-10.8) 06/16/24 05:36
Hgb 8.6 g/dL (12.0-16.0) L 06/16/24 07:29
Hct 25.8 % (37.0-47.0) L 06/16/24 07:29
MCV 91.7 fL (81.0-99.0) 06/16/24 05:36
Plt Count 266 10^3/uL (130-400) 06/16/24 05:36
Absolute Neuts (auto) 3.6 10^3/uL (1.4-6.5) 06/16/24 05:36
PT 14.8 Sec (11.4-14.6) H 06/14/24 06:34
INR 1.16 06/14/24 06:34
APTT 30.1 Sec (23.4-35.0) 06/14/24 06:34
Sodium 140 mmol/L (135-145) 06/16/24 05:36
Potassium 3.4 mmol/L (3.5-5.1) L 06/16/24 05:36
Chloride 103 mmol/L (98-107) 06/16/24 05:36
Carbon Dioxide 25 mmol/L (22-30) 06/16/24 05:36
BUN 11 mg/dl (7-17) 06/16/24 05:36
Creatinine 0.5 mg/dL (0.6-1.0) L 06/16/24 05:36
Calcium 8.0 mg/dl (8.4-10.2) L 06/16/24 05:36
Total Bilirubin 0.4 mg/dl (0.2-1.3) 06/16/24 05:36
AST 61 U/L (14-36) H 06/16/24 05:36
ALT 17 U/L (0-35) 06/16/24 05:36
Alkaline Phosphatase 76 U/L (38-126) 06/16/24 05:36
Hepatitis C Antibody Negative (Negative) 06/14/24 06:34
Diagnostic Image Results:
Prior GI Procedures:
EGD:
Colonoscopy:
Assessment / Plan
-
1. Rectal bleeding: Consistent with hemorrhoidal bleeding, likely not the cause of her slow drift in hemoglobin. At this point we will continue bowel regimen and supportive care, hold on further GI workup for now. She is okay from GI standpoint
for Lovenox if indicated. We will sign off for now, please go back with any further questions.
-
-
Thank you for consultation and allowing me to participate in the patient's care. Please call the rehabilitation services aide GI physician during the after hours with any questions or concerns.
--- NOTE | 2024-06-16 09:07 | W.PN.HOSP.TC ---
Today's Communication/Plan
-
GI cosnult
follow H&H
ORtho follow up for L hip bruise - holding off Lovenox until their eval
COnt withdrawal mgmt
Assessment / Plan
Assessment / Plan
43yo F with PMHx of heroin abuse now on methadone, alcohol abuse came with L femoral Fx
Had L hip pain started days ago after she found her leg caught in between ottoman and sofa while sleeping, now before admission felt pop while walking and could not bear weight with pain anymore on her LLE. Drinking 6-packs nightly
S/P L femoral ORIF on 06/15/24, developed postOP hgb drop with some bright red blood per rectum
A/P:
#Acute traumatic comminuted transcervical fractre of the L femoral neck, traumatic, unclear if underlying osteoporosis
Pain mgmt
Ortho s/p OR on 06/14/24 - Lovenox BID for 4 weeks, RN to teach
Outpatient bone scan with PCP advised - patient verbalized understanding
#Alcohol use disorder with withdrawal
Thiamine/Folate
MSAS protocol
Taper valium due to significant tremors
watch for DT
D5LR
follow and replete electrolytes
#Opioid replacement therapy
#ADHD
cont home meds
#mild anemia with most likely hemorrhoidal bleed 2/2 constipation
Laxatives
PPI
GI consult
follow with PCP upon d/c
#Mild AST elevation
2/2 alcohol abuse vs post-traumatic hematoma in the L hip
#Vit D deficiency
replete
#Nicotine dependency
Nicoderm
counselled on cessation
#Sinus tachy
2/2 withdrawal and possibly Ritalin - will decrease dose further
DVT ppx on SCDs
Full code
I have spent at least 58min reviewing chart, test results, communication with consultants and direct patient care
Anticipated Discharge: 24 - 48 hours
Subjective/Interval History
-
Date of Service: June 16, 2024
Objective Data
-
Labs:
Laboratory Results
06/16/24 06/16/24 06/16/24
05:36 07:29 15:15
WBC 5.9
Hgb 8.2 L 8.6 L Pending
Hct 25.5 L 25.8 L Pending
Plt Count 266
Sodium 140
Potassium 3.4 L
Chloride 103
Carbon Dioxide 25
BUN 11
Creatinine 0.5 L
Glucose 141 H
Calcium 8.0 L
Total Bilirubin 0.4
AST 61 H
ALT 17
Alkaline Phosphatase 76
06/16/24
23:15
WBC
Hgb Pending
Hct Pending
Plt Count
Sodium
Potassium
Chloride
Carbon Dioxide
BUN
Creatinine
Glucose
Calcium
Total Bilirubin
AST
ALT
Alkaline Phosphatase
Vital Signs:
Vital Signs
Temp Pulse Resp BP Pulse Ox
98.0 F 107 18 119/81 98
06/16/24 07:05 06/16/24 07:05 06/16/24 07:05 06/16/24 07:05 06/16/24 07:05
I&O
06/15/24 06/16/24 06/17/24
06:59 06:59 06:59
Intake Total 2480 / 2480 2600 / 2600 1200 / 1200
Output Total 350 / 350
Balance 2130 / 2130 2600 / 2600 1200 / 1200
Physical Exam
-
General: No Apparent Distress
HEENT: Normocephalic
Cardiac: Regular Rhythm and Tachycardic
GI: Soft, Nontender and Nondistended
Skin: Warm and Other (bruising in L hip)
Neuro: Awake, Alert, Oriented, AO x 3 and Tremors
--- NOTE | 2024-06-16 09:18 | W.PN.UPDATE ---
Update Note
Progress Note Update
Patient was taking ritalin one per day and second dose was PRN. With sinus tachy - will hold it now
--- NOTE | 2024-06-16 10:04 | W.PN.ORTHO ---
Today's Communication / Plan
-
PT/OT, discharge planning with case management
Assessment
.
Assessment:
43F s/p internal fixation left hip for femoral neck fracture
Plan
.
Surgery / Date: L hip [facility] 06/14/24 w/ Dr. Vanegas
Activity:
Out of bed.
PT/OT
Continue lovenox for 4 weeks postop. WBAT. F/U in two weeks for staple removal, repeat XR
Rest of management per primary
Will sign off, please contact us if issues arise
Subjective
.
.:
Patient sitting up in bed comfortably.States her hip dai is well controlled, has been able to walk to bathroom using RW. Would like to be discharged home, however PT recommends rehab. Complains about mild but improving pain in her left knee from her
fall.
Vital Signs and Labs
.
Vital Signs and Labs:
Lab Results
06/16/24 05:36
Temp Pulse Resp BP Pulse Ox
98.0 F 107 18 119/81 98
06/16/24 07:05 06/16/24 07:05 06/16/24 07:05 06/16/24 07:05 06/16/24 07:05
PT 14.8 Sec (11.4-14.6) H 06/14/24 06:34
INR 1.16 06/14/24 06:34
Physical Exam
-
Minimal blood staining on dressing, no strike through
Mild TTP at surgical site
Sensation, motor function intact distally
Palpable pulses, toes WWP with brisk capillary refill
--- NOTE | 2024-06-16 10:53 | W.PN.UPDATE ---
Update Note
Progress Note Update
Dressing was changed while patient was sitting upright in bed. No active bleeding. No surrounding erythema or drainage. New dressing applied without complication
[2024-06-16 15:27] LABS: Hemoglobin 9.3 g/dL (12.0-16.0)
--- NOTE | 2024-06-16 18:13 | PTCARENOTE ---
at times pt could score high on MSAS but it is when family is in room or when she is being questioned or asked dabout post care and is becoming upset, it does not seem to be withdrawal but anxiety.
[2024-06-16] MEDS: VITAMIN B1 100 MG PO (20:11)
[2024-06-16] MEDS: LOVENOX SC (21:10)
--- NOTE | 2024-06-16 21:10 | PTCARENOTE ---
pt refused Lovenox as she expressed she had rectal bleeding. pt was educated the bleeding was due to internal hemorrhoids and she could re-start her Lovenox, pt verbalized understanding however asked if she could decline today and continue tomorrow,
she expressed she is up and walking. Pt was educated and continue to follow plan of care.
[2024-06-16] MEDS: TYLENOL PO (22:51)
[2024-06-17 03:05] VITALS: BP 129/79
[2024-06-17] MEDS: ROXICODONE 10 MG PO ×2 (05:26→11:32)
[2024-06-17 06:12] LABS: % Eosinophils 5.1 % (0-6); % Immature Granulocytes 2.1 % (0-0.5); % Lymphocytes 20.2 % (20.5-51.1); % Monocytes 6.6 % (1.7-9.3); Absolute Basophils 0.1 10^3/uL (0-0.2); Absolute Eosinophils 0.4 10^3/uL (0-0.7); Absolute Immature Granulocytes 0.2 10^3/uL (0-0.05); Absolute Lymphocytes 1.4 10^3/uL (1.2-3.4); Absolute Monocytes 0.5 10^3/uL (0.1-0.6); Absolute Neutrophils 4.6 10^3/uL (1.4-6.5); Hematocrit 27.6 % (37.0-47.0); Hemoglobin 8.5 g/dL (12.0-16.0); Mean Corp Hgb Conc. 31.5 g/dL (33.0-37.0); Mean Corpuscular Hgb 29.6 pg (27.0-31.0); Mean Corpuscular Volume 94.1 fL (81.0-99.0); Mean Platelet Volume 10.2 fL (7.4-10.4); Nucleated Red Blood Cells % 0 %; Platelet Count 294 10^3/uL (130-400); Red Blood Cell Count 2.87 10^6/uL (4.20-5.40); Red Cell Dist. Width 14.6 % (11.5-14.5); White Blood Cell Count 7.1 10^3/uL (4.8-10.8)
[2024-06-17 06:51] LABS: ALT (SGPT) 18 U/L (0-35); AST (SGOT) 80 U/L (14-36); Albumin 3.4 g/dl (3.5-5.0); Alkaline Phosphatase 84 U/L (38-126); Blood Urea Nitrogen 9 mg/dl (7-17); Calcium 8.4 mg/dl (8.4-10.2); Carbon Dioxide 21 mmol/L (22-30); Chloride 106 mmol/L (98-107); Estimated Creatinine Clearance > 125 ml/min; Glucose 119 mg/dl (70-99); Potassium 4.1 mmol/L (3.5-5.1); Sodium 141 mmol/L (135-145); Total Bilirubin 0.5 mg/dl (0.2-1.3); eGFR > 60.00
[2024-06-17 07:09] VITALS: BP 113/71
[2024-06-17] MEDS: MIRALAX 17 GRAMS PO (07:45)
[2024-06-17] MEDS: LOVENOX SC (07:45)
[2024-06-17] MEDS: METHADONE 100 MG/10 ML 88 MG PO (07:45)
[2024-06-17] MEDS: NICODERM TRANSDERMAL 14 MG TRANSDERM (07:46)
[2024-06-17] MEDS: FOLVITE 1 MG PO (07:47)
[2024-06-17] MEDS: PROTONIX IV 40 MG IV ×2 (07:47→19:55)
[2024-06-17] MEDS: TYLENOL 1000 MG PO ×3 (07:47→21:36)
[2024-06-17] MEDS: ARICEPT 5 MG PO (07:47)
[2024-06-17] MEDS: VITAMIN D3 (cholecalciferol) 25 MCG PO (07:47)
[2024-06-17] MEDS: VITAMIN B1 100 MG PO ×2 (07:47→19:55)
[2024-06-17] MEDS: COLACE 100 MG PO ×2 (07:47→19:55)
[2024-06-17] MEDS: NSS (PRESERVATIVE FREE) 10 ML IV ×2 (07:47→19:56)
[2024-06-17 11:10] VITALS: BP 127/81
--- NOTE | 2024-06-17 11:54 | CM ---
Case management following for discharge planning
Chart reviewed. Met with pt at bedside
PT/OT - recs - acute rehab. Discussed with pt - discussed options
Prefers [facility] at . Discussed other options - has no preference at this time
Will send referrals in [facility]
Will need auth
Plan - acute rehab when bed obtained and medically stable
--- NOTE | 2024-06-17 12:06 | W.PN.HOSP.TC ---
Today's Communication/Plan
-
Trend hgb
bowel regimen
fiber added
PMR EVAL
Monitor stools
Assessment / Plan
Assessment / Plan
43yo F with PMHx of heroin abuse now on methadone, alcohol abuse came with L femoral Fx
Had L hip pain started days ago after she found her leg caught in between [employer] and [employer] while sleeping, now before admission felt pop while walking and could not bear weight with pain anymore on her LLE. Drinking 6-packs nightly
S/P L femoral ORIF on 06/15/24, developed postOP hgb drop with some bright red blood per rectum
A/P:
#Acute traumatic comminuted transcervical fracture of the L femoral neck, traumatic, unclear if underlying osteoporosis
Pain mgmt
Ortho s/p OR on 06/14/24 - Lovenox BID for 4 weeks, RN to teach
Outpatient bone scan with PCP advised - patient verbalized understanding
bowel regimen
#Alcohol use disorder with withdrawal
Thiamine/Folate
MSAS protocol
Tapered off valium.
watch for DT
toleratign diet.
follow and replete electrolytes
#Opioid replacement therapy
# Chronic opioid dependent on daily basis
#ADHD
Continue methadone. Bowel regimen adjusted.
#mild anemia with most likely hemorrhoidal bleed 2/2 constipation
Laxatives
PPI
GI consult
follow with PCP upon d/c
#Mild AST elevation
2/2 alcohol abuse vs post-traumatic hematoma in the L hip
#Vit D deficiency
replete
#Nicotine dependency
Nicoderm
counselled on cessation
#Sinus tachy
2/2 withdrawal and possibly Ritalin versus anemia
Can restart Ritalin if heart rate improves.
DVT ppx on lovenox
PT/OT-Acute rehab. PMR consulted.
Anticipated Discharge: Within 24 hours
Subjective/Interval History
-
Date of Service: June 17, 2024
denies any further BRPBR
States of constipation usually due to methadone
Objective Data
-
Labs:
Laboratory Results
06/17/24 06/17/24 06/17/24
04:38 04:38 04:38
WBC 7.1
Hgb 9.0 L 8.5 L
Hct 27.6 L 27.0 L
Plt Count 294
Sodium 141
Potassium 4.1
Chloride 106
Carbon Dioxide 21 L
BUN 9
Creatinine 0.4 L
Glucose 119 H
Calcium 8.4
Total Bilirubin 0.5
AST 80 H
ALT 18
Alkaline Phosphatase 84
Vital Signs:
Vital Signs
Temp Pulse Resp BP Pulse Ox
97.8 F 94 16 127/81 96
06/17/24 11:10 06/17/24 11:10 06/17/24 11:10 06/17/24 11:10 06/17/24 11:10
I&O
06/16/24 06/17/24 06/18/24
06:59 06:59 06:59
Intake Total 2600 / 2600 2019
Balance 2600 / 2600 2019
Physical Exam
-
General: Well Developed, Well Nourished and No Apparent Distress
HEENT: Normocephalic, Atraumatic and Moist Mucous Membranes
Respiratory: Clear to Auscultation
Cardiac: Regular Rhythm, S1/S2 and Tachycardic
GI: Soft, Nontender and Nondistended
Rectal: Deferred by Provider
Genito-urinary: Negative Velez
Skin: Warm and Other (bruising in L hip)
Neuro: Awake, Alert, Oriented, AO x 3 and Tremors
Psych: Calm
Data Reviewed
-
Total Time Spent with Patient (in minutes): 58
[2024-06-17 15:29] VITALS: BP 104/65
[2024-06-17 19:13] VITALS: BP 135/70
[2024-06-17] MEDS: LOVENOX 30 MG SC (19:56)
[2024-06-17 23:10] VITALS: BP 130/77
[2024-06-18 03:19] VITALS: BP 124/73
--- NOTE | 2024-06-18 05:50 | PTCARENOTE ---
aprox 21:00 pt's locked the bathroom door in the pt's room, knocking and loud calling went on for aprox 45min with no answer. Nurse expressed if someone is in the restroom for a long period of time without answering , we have to make sure
the person locked in the restroom is safe. Her came out abruptly did not say anything and left the unit. Security was made aware they notified the erection shop supervisor.
[2024-06-18] MEDS: METAMUCIL, KONSYL 1 PACKET PO (07:26)
[2024-06-18] MEDS: LOVENOX SC ×2 (07:26→20:28)
[2024-06-18] MEDS: MIRALAX PO (07:26)
[2024-06-18] MEDS: METHADONE 100 MG/10 ML 88 MG PO (07:26)
[2024-06-18] MEDS: FOLVITE 1 MG PO (07:27)
[2024-06-18] MEDS: PROTONIX IV 40 MG IV (07:27)
[2024-06-18] MEDS: COLACE 100 MG PO ×2 (07:27→20:24)
[2024-06-18] MEDS: VITAMIN B1 100 MG PO ×2 (07:27→20:24)
[2024-06-18] MEDS: VITAMIN D3 (cholecalciferol) 25 MCG PO (07:27)
[2024-06-18] MEDS: TYLENOL 1000 MG PO ×3 (07:27→22:09)
[2024-06-18] MEDS: NSS (PRESERVATIVE FREE) 10 ML IV (07:27)
[2024-06-18] MEDS: ARICEPT 5 MG PO (07:27)
[2024-06-18] MEDS: NICODERM TRANSDERMAL 14 MG TRANSDERM (07:27)
[2024-06-18 07:32] VITALS: BP 134/79
[2024-06-18 08:07] LABS: % Basophils 0.8 % (0-2); % Eosinophils 3.9 % (0-6); % Immature Granulocytes 2.4 % (0-0.5); % Lymphocytes 21.3 % (20.5-51.1); % Neutrophils 65.6 % (42.2-75.2); Absolute Basophils 0.1 10^3/uL (0-0.2); Absolute Eosinophils 0.3 10^3/uL (0-0.7); Absolute Immature Granulocytes 0.2 10^3/uL (0-0.05); Absolute Lymphocytes 1.4 10^3/uL (1.2-3.4); Absolute Monocytes 0.4 10^3/uL (0.1-0.6); Absolute Neutrophils 4.3 10^3/uL (1.4-6.5); Hematocrit 25.4 % (37.0-47.0); Hemoglobin 8.3 g/dL (12.0-16.0); Mean Corp Hgb Conc. 32.7 g/dL (33.0-37.0); Mean Corpuscular Hgb 31.2 pg (27.0-31.0); Mean Corpuscular Volume 95.5 fL (81.0-99.0); Mean Platelet Volume 10.5 fL (7.4-10.4); Nucleated Red Blood Cells % 0.3 %; Platelet Count 260 10^3/uL (130-400); Red Blood Cell Count 2.66 10^6/uL (4.20-5.40); Red Cell Dist. Width 14.4 % (11.5-14.5); White Blood Cell Count 6.6 10^3/uL (4.8-10.8)
[2024-06-18] MEDS: PREPARATION H MAX STRENGTH PAIN RELIEF CREAM RECTAL ×2 (09:57→20:55)
--- NOTE | 2024-06-18 10:28 | W.PN.HOSP.TC ---
Today's Communication/Plan
-
PMR eval
bowel regimen
trend hgb
Assessment / Plan
Assessment / Plan
43yo F with PMHx of heroin abuse now on methadone, alcohol abuse came with L femoral Fx
Had L hip pain started days ago after she found her leg caught in between ottoman and sofa while sleeping, now before admission felt pop while walking and could not bear weight with pain anymore on her LLE. Drinking 6-packs nightly
S/P L femoral ORIF on 06/15/24, developed postOP hgb drop with some bright red blood per rectum
A/P:
#Acute traumatic comminuted transcervical fracture of the L femoral neck, traumatic, unclear if underlying osteoporosis
Pain mgmt
Ortho s/p OR on 06/14/24 - Lovenox BID for 4 weeks, RN to teach
Outpatient bone scan with PCP advised - patient verbalized understanding
bowel regimen
#Alcohol use disorder with withdrawal
Thiamine/Folate
MSAS protocol
Tapered off valium.
tolerating diet. No tremors noted
follow and replete electrolytes
#Opioid replacement therapy
# Chronic opioid dependent on daily basis
#ADHD
Continue methadone. Bowel regimen adjusted.
#mild anemia with most likely hemorrhoidal bleed 2/2 constipation
Laxatives
PPI
prep H added
trend Hgb. Transfuse prn </= 7 hgb
follow with PCP upon d/c
#Mild AST elevation
2/2 alcohol abuse vs post-traumatic hematoma in the L hip
#Vit D deficiency
replete
#Nicotine dependency
Nicoderm
counselled on cessation
#Sinus tachy
2/2 withdrawal and possibly Ritalin versus anemia
Can restart Ritalin if heart rate improves.
DVT ppx on lovenox
PT/OT-Acute rehab. PMR consulted.
Anticipated Discharge: Within 24 hours
Subjective/Interval History
-
Date of Service: June 18, 2024
Denies any BRBPR
had bm yesterday and no blood noted
Objective Data
-
Labs:
Laboratory Results
06/18/24
04:47
WBC 6.6
Hgb 8.3 L
Hct 25.4 L
Plt Count 260
Vital Signs:
Vital Signs
Temp Pulse Resp BP Pulse Ox
98.5 F 74 18 134/79 94
06/18/24 07:32 06/18/24 07:32 06/18/24 07:32 06/18/24 07:32 06/18/24 07:32
I&O
06/17/24 06/18/24 06/19/24
06:59 06:59 06:59
Intake Total 2019
Balance 2019
Physical Exam
-
General: Well Developed, Well Nourished and No Apparent Distress
HEENT: Normocephalic, Atraumatic and Moist Mucous Membranes
Respiratory: Clear to Auscultation
Cardiac: Regular Rhythm, S1/S2 and Tachycardic
GI: Soft, Nontender and Nondistended
Rectal: Deferred by Provider
Genito-urinary: Negative Velez
Skin: Warm and Other (bruising in L hip)
Neuro: Awake, Alert, Oriented, AO x 3 and Tremors
Psych: Calm
--- NOTE | 2024-06-18 10:36 | PN.CDI ---
CDI
- -
CDI:
Physician Documentation Request
Admit Date: 06/13/24 14:11
Dear Doctor Chelita,
Please review the following and provide your response in the progress notes.
Clinical Indicators:
Pt admitted with Acute traumatic comminuted transcervical fracture of the L femoral neck s/p ORIF 06/14
ESBL 200 ml
GI consult, ' Rectal bleeding: Consistent with hemorrhoidal bleeding, likely not the cause of her slow drift in hemoglobin. ...'
Progress note 06/16-06/18, ' mild anemia with most likely hemorrhoidal bleed 2/2 constipation...'
Treatment - trend Hgb. Transfuse prn </= 7 hgb
06/13/24 06/14/24 06/15/24
12:26 06:34 06:03
Hgb 12.7 11.6 L 9.2 L D
Hct 37.7 35.1 L 28.2 L
06/16/24 06/17/24
05:36 04:38
Hgb 8.2 L 8.5 L
Hct 25.5 L 27.6 L
06/18/24
04:47
Hgb 8.3 L
Hct 25.4 L
Based on the above, could you clarify, in your progress note, which of the following is the most likely type of anemia you are evaluating, monitoring and/or treating?
Acute blood loss anemia
Drift in Anemia only
Other ( please specify)
Use of terms such as suspected, likely, concern for, or probable (associated with a specific diagnosis that is being evaluated, monitored, or treated as if it exists) are acceptable and can be coded in the inpatient setting, when documented at the
time of discharge.
Thank you,
Mahsa Madison RN
CDI Specialist
[facility]
Please use your independent medical judgment in providing your response.
[2024-06-18 11:14] VITALS: BP 119/74
--- NOTE | 2024-06-18 13:41 | CON.MD ---
Consultation - Medical
-
Referring Provider:�Dr. Joel Merlos
Chief Complaint:�Left hip fracture
�
History of Present Illness:�43-year-old female with PMH (as below) presented to [facility] on 06/13/2024 after mechanical fall with acute left traumatic comminuted transcervical femoral neck fracture status post 06/14/2024 left femoral neck
closed reduction and internal fixation. Postoperatively with some mild anemia thought to be secondary to hemorrhoidal bleeding secondary to constipation. There was some sinus tachycardia thought to be secondary to alcohol withdrawal and possibly
Ritalin versus anemia. Plan for Lovenox twice daily for 4 weeks still having difficulty with ambulation and ADLs.
�
Past Medical History:�Bipolar disorder, opioid use disorder, ADHD
Procedure History:� section, salpingotomy
Family History:�None pertinent
�
Social History:�
Functional Level Premorbidly:�Independent with all activities�
Functional Level Currently:�
�
Tobacco:�Vaping
Alcohol:�6 cans of beer a night
Drug use:�Former�
Lives with:� and children
24-hour assistance available:�Yes
Number of floors:�2
# steps to enter:�1+1
# steps to second floor: Full flight
Potential First floor set up:�Yes
Driving:�Yes
Occupation:�Not working
�
�
Allergies:�
Allergy/AdvReac Type Severity Reaction Status Date / Time
No Known Allergies Allergy Verified 06/13/24 10:33
�
Review of Systems:�
Constitutional: (x) abNormal _fatigue
Eye: (x) Normal _
Ear/Nose/Throat: (x) Normal _
Respiratory: (x) Normal _
Cardiovascular: (x) Normal _
Gastrointestinal: (x) Normal _
Genitourinary: (x) Normal _
Musculoskeletal: (x) abNormal _hip pain
Integumentary: (x) abNormal _hip incision
Neurologic: (x) Normal _
Psychiatric: (x) Normal _
Endocrine: (x) Normal _
Hematologic/Lymphatic: (x) Normal _
Allergic/Immunologic: (x) Normal _
�
Medications:�
Active Current Visit Medication List
Category Date Time Status
0.9% Sodium Chloride [Nss (Preservative Free)] Med 06/16/24 08:00 Active
10 ml IV BID
0.9% Sodium Chloride [Nss (Preservative Free)] Med 06/13/24 15:20 Active
See Protocol IV PRN PRN
Acetaminophen [Tylenol] Med 06/13/24 16:00 Active
1,000 mg PO TID
Cholecalciferol (Vitamin D3) [VITAMIN D3 ( Med 06/13/24 17:00 Active
cholecalciferol)]
25 mcg PO DAILY
Docusate Sodium [Colace] Med 06/14/24 20:00 Active
100 mg PO BID
Donepezil [Aricept] Med 06/14/24 08:00 Active
5 mg PO DAILY
Enoxaparin Sodium [Lovenox] Med 06/15/24 08:00 Active
30 mg SC Q12H
Ergocalciferol [Drisdol (Vitamin D2)] Med 06/14/24 11:00 Active
50,000 units PO Q7D
FOLic ACID [Folvite] Med 06/14/24 08:00 Active
1 mg PO DAILY
FOLic ACID [Folvite] 1 mg Med 06/13/24 15:20 Active
0.9% Sodium Chloride 50 ml [Nss] 50 ml
IV DAILYPRN
Flush (0.9% Sodium Chloride) [Flush (Nss)] Med 06/13/24 15:00 Active
See Dose Instructions IV PER PROTOCOL
Lorazepam [Ativan] Med 06/13/24 15:20 Active
1 mg IV Q1HPRN PRN
Lorazepam [Ativan] Med 06/13/24 15:20 Active
1 mg PO Q2HPRN PRN
Lorazepam [Ativan] Med 06/13/24 15:20 Active
2 mg IV Q1HPRN PRN
Mag Hydrox/Al Hydrox/Simeth [Maalox] Med 06/14/24 13:58 Active
30 ml PO Q4HPRN PRN
Methadone HCl [Methadone 100 mg/10 ml] Med 06/14/24 08:00 Active
88 mg PO DAILY
Nicotine [Nicoderm Transdermal] Med 06/13/24 18:00 Active
14 mg TRANSDERM DAILY
Ondansetron Injectable [Zofran] Med 06/14/24 13:58 Active
4 mg IV Q6HPRN PRN
Oxycodone [Roxicodone] Med 06/14/24 13:58 Active
10 mg PO Q4HPRN PRN
Oxycodone [Roxicodone] Med 06/14/24 13:58 Active
5 mg PO Q4HPRN PRN
Pantoprazole [Protonix] Med 06/18/24 20:00 Active
40 mg PO BID
Phenyleph/Pramoxin/Glycr/W.pet [Preparation H Max Med 06/18/24 08:00 Active
Strength Pain Relief Cream]
See Dose Instructions RECTAL BID
Polyethylene Glycol Powder [Miralax] Med 06/14/24 08:00 Active
17 grams PO DAILY
Psyllium [Metamucil, Konsyl] Med 06/18/24 08:00 Active
1 packet PO DAILY
Thiamine HCl [Vitamin B1] Med 06/16/24 20:00 Active
100 mg PO BID
�
Vitals:�
Temp Pulse Resp BP Pulse Ox
98.6 F 96 18 136/83 100
06/18/24 23:41 06/18/24 23:41 06/18/24 23:41 06/18/24 23:41 06/18/24 23:41
Height 5 ft 8 in
Actual Weight 103.051 kg
Body Mass Index (BMI) 34.6
�
Physical Exam:�
General Appearance/Observation: Well-developed, well-nourished female in no apparent distress.�
Pain/Comfort Assessment: Mild to moderate left hip pain, controlled with medications
Mood/Affect: Appropriate�
�
Integumentary/Operative Site:�Left hip with large ecchymosis, Aquacel with scant serosanguineous drainage.
�� Pressure Ulcer Evaluation: absent over heels.�
�
�
Eyes: Conjunctiva/Lids: normal���� Pupils: pupils equal round and reactive to light
Ears/Nose/Throat: oral mucosa moist,� throat clear.������������ Lips/Teeth/Gums: normal�
Cardiovascular: Heart: regular, no murmur�
Pulses: dorsalis pedis 2+ bilaterally�
Respiratory: Respiratory Effort/Chest Expansion: normal������� Auscultation: Clear to auscultation bilaterally�
Gastrointestinal: abdomen not tender, no distension, normal abdominal bowel sounds
Genitourinary: No Velez�
Extremities:�Edema: Mild left lower extremity nonpitting edema�cyanosis: None�Trophic�changes: None
�
Neurology Exam:
Orientation: Alert, Oriented to self, Time, Place�
Memory: Intact for recent medical concerns
Comprehension: Intact
Two step command: Intact
Cranial Nerves:
�� CNII:�Pupillary light reflex: Intact����Visual Field: Intact
�� CN III, IV, : Extraocular muscles: Intact�
�� CN V:�Facial Sensation�at�Forehead: Intact,�Maxilla: Intact,�Mandible: Intact
�� CN VII:�Facial movement: Symmetric
�� CN VIII:�Hearing: Normal
�� CN IX/X:�Speech & swallow: Normal,�Position of Uvula: Midline
�� CN XI:�Shoulder shrug: Symmetric
�� CN XII:�Tongue protrusion: Midline
Sensory:
�� Light touch: Intact in bilateral upper and lower extremities�
�
Reflexes:
�� Biceps: 2+ bilaterally
�� Brachioradialis: 2+ bilaterally
�� Triceps: 2+ bilaterally
�� Patellar: 2+ bilaterally
�� Achilles: 2+ bilaterally
�� Babinski: Down going bilaterally
�� Clonus: None
�� Mirella: Negative bilaterally�
Cerebellar: Dysmetria/Ataxia: None�
Musculoskeletal: Motor: (Manual muscle scale 0-5)�
Muscle SA EF WE EE FF FA HF KE DF EHL PF
Right� 3 5 5 5 4 4 5 5 5 5
Left 3 5 5 5 4 2 4 5 5 5
�
Tone: Normal in all extremities, except for limited both shoulders and left hip.
Range of Motion: Passively within normal limits in all extremities�
�
Lab Results
Laboratory Data
06/18/24 04:47
06/17/24 04:38
PT 14.8 Sec (11.4-14.6) H 06/14/24 06:34
INR 1.16 06/14/24 06:34
APTT 30.1 Sec (23.4-35.0) 06/14/24 06:34
Total Bilirubin 0.5 mg/dl (0.2-1.3) 06/17/24 04:38
Direct Bilirubin 0.4 mg/dl (0.0-0.4) 06/14/24 06:34
AST 80 U/L (14-36) H 06/17/24 04:38
ALT 18 U/L (0-35) 06/17/24 04:38
Alkaline Phosphatase 84 U/L (38-126) 06/17/24 04:38
Total Protein 6.0 g/dl (6.3-8.2) L 06/17/24 04:38
Albumin 3.4 g/dl (3.5-5.0) L 06/17/24 04:38
�
Diagnostic Results:�as per HPI�
�
Assessment
43-year-old female with PMH (bipolar disorder, drug alcohol and smoking abuse) with left comminuted surgical neck fracture status post open reduction and internal fixation on 06/15/2024 with ADL and ambulatory dysfunction. Weightbearing as tolerated.
�
Plan�
PM&R�PT/OT to increase independence with ADLs, improve balance, coordination, endurance, strength, mobility, community reintegration, decreased burden of care on others and family education.�
�
06/15/2024 left femoral ORIF for comminuted surgical neck fracture: Monitor incision, pain control, WBAT. Incision care per orthopedics�
Postoperative anemia: Likely multifactorial.� Continue to monitor.�
Cognitive dysfunction: donepezil
Bipolar disorder: Not currently on medication.�
Pain: acetaminophen or oxycodone as needed.�
Bowel: Colace and Senna, PRN bisacodyl.�
Bladder: Time void, PVRs, PRN straight cath.�
Alcohol Abuse: Alcohol cessation education, offering of outpatient alcohol abuse program. Lorazepam as needed for alcohol withdrawal.
Tobacco Abuse: Smoking cessation counseling. Need to find out why smoking whether it is nicotine withdrawal, habit, or oral fixation.�
Opioid dependence: Methadone
GI Prophylaxis: Pantoprazole�
DVT Prophylaxis: Mechanical and Lovenox
Pulmonary: Incentive spirometry�
Obesity: Continue to counselor supervisor patient about diet adjustments to control obesity. Body habitus and increased force to move body and extremities causes further difficulty with functional tasks.�
Safety: Continue to reinforce assistance with all transfers.�
Code Status:� Full code
Dispo�(date/plan/equipment needs): Home with family care.� Social history reviewed.�
Functional and Medical Goals:�Modified Independent with ADL�s, ambulation, transfers�
Discharge Destination:�alf facility
�
Summary of recommendations:
-�Discharge Destination:�alf facility
06/15/2024 left femoral ORIF for comminuted surgical neck fracture: Monitor incision, pain control, WBAT. Incision care per orthopedics�
Postoperative anemia: Likely multifactorial.� Continue to monitor.�
DVT Prophylaxis: Mechanical and Lovenox
Thank you for allowing me to care for your patient. Please contact me with any questions or concerns.
[2024-06-18] MEDS: ROXICODONE 10 MG PO (14:40)
[2024-06-18 15:35] VITALS: BP 118/63
[2024-06-18] MEDS: PROTONIX 40 MG PO (20:24)
[2024-06-18] MEDS: NSS (PRESERVATIVE FREE) IV (20:26)
[2024-06-18 23:41] VITALS: BP 136/83
[2024-06-19 06:52] LABS: Hematocrit 26.4 % (37.0-47.0); Hemoglobin 8.6 g/dL (12.0-16.0); Mean Corp Hgb Conc. 32.6 g/dL (33.0-37.0); Mean Corpuscular Hgb 30.6 pg (27.0-31.0); Mean Platelet Volume 10.3 fL (7.4-10.4); Platelet Count 301 10^3/uL (130-400); Red Blood Cell Count 2.81 10^6/uL (4.20-5.40); Red Cell Dist. Width 14.2 % (11.5-14.5); White Blood Cell Count 7.7 10^3/uL (4.8-10.8)
[2024-06-19 07:00] VITALS: BP 129/89
[2024-06-19 07:25] LABS: % Basophils 0.7 % (0-2); % Eosinophils 4.4 % (0-6); % Immature Granulocytes 5.1 % (0-0.5); % Lymphocytes 20.4 % (20.5-51.1); % Monocytes 6.3 % (1.7-9.3); % Neutrophils 63.1 % (42.2-75.2); Absolute Basophils 0.1 10^3/uL (0-0.2); Absolute Eosinophils 0.3 10^3/uL (0-0.7); Absolute Immature Granulocytes 0.4 10^3/uL (0-0.05); Absolute Lymphocytes 1.6 10^3/uL (1.2-3.4); Absolute Monocytes 0.5 10^3/uL (0.1-0.6); Absolute Neutrophils 4.8 10^3/uL (1.4-6.5); Nucleated Red Blood Cells % 0.4 %
[2024-06-19] MEDS: ARICEPT 5 MG PO (09:08)
[2024-06-19] MEDS: TYLENOL 1000 MG PO ×3 (09:08→21:57)
[2024-06-19] MEDS: PREPARATION H MAX STRENGTH PAIN RELIEF CREAM RECTAL ×2 (09:08→20:11)
[2024-06-19] MEDS: COLACE 100 MG PO ×2 (09:08→19:40)
[2024-06-19] MEDS: PROTONIX 40 MG PO ×2 (09:09→19:40)
[2024-06-19] MEDS: FOLVITE 1 MG PO (09:09)
[2024-06-19] MEDS: VITAMIN B1 100 MG PO ×2 (09:09→19:40)
[2024-06-19] MEDS: METHADONE 100 MG/10 ML 88 MG PO (09:09)
[2024-06-19] MEDS: MIRALAX 17 GRAMS PO (09:09)
[2024-06-19] MEDS: VITAMIN D3 (cholecalciferol) 25 MCG PO (09:09)
[2024-06-19] MEDS: METAMUCIL, KONSYL 1 PACKET PO (09:10)
[2024-06-19] MEDS: LOVENOX 30 MG SC ×2 (09:10→19:40)
[2024-06-19] MEDS: NICODERM TRANSDERMAL 14 MG TRANSDERM (09:10)
[2024-06-19] MEDS: NSS (PRESERVATIVE FREE) IV ×2 (09:11→20:10)
--- NOTE | 2024-06-19 11:51 | W.PN.HOSP.TC ---
Today's Communication/Plan
-
SNF. CM aware. Await placement. Medically stable.
Assessment / Plan
Assessment / Plan
43yo F with PMHx of heroin abuse now on methadone, alcohol abuse came with L femoral Fx
Had L hip pain started days ago after she found her leg caught in between ottoman and sofa while sleeping, now before admission felt pop while walking and could not bear weight with pain anymore on her LLE. Drinking 6-packs nightly
S/P L femoral ORIF on 06/15/24, developed postOP hgb drop with some bright red blood per rectum
A/P:
#Acute traumatic comminuted transcervical fracture of the L femoral neck, traumatic, unclear if underlying osteoporosis
Pain mgmt
Ortho s/p OR on 06/14/24 - Lovenox BID for 4 weeks. Counseled patient to be compliant with medication to prevent DVT. Pt verbalized understanding.
Outpatient bone scan with PCP advised - patient verbalized understanding
bowel regimen
PMR recs SNF. CM aware.
#Alcohol use disorder with withdrawal
Thiamine/Folate
MSAS protocol
Tapered off valium.
tolerating diet. No tremors noted
follow and replete electrolytes
#Opioid replacement therapy
# Chronic opioid dependent on daily basis
#ADHD
Continue methadone. Bowel regimen adjusted.
#mild anemia with most likely hemorrhoidal bleed 2/2 constipation
#Acute blood loss anemia likely multifactorial secondary to surgery and hemorrhoidal bleeding
Laxatives
PPI
prep H added
trend Hgb. Transfuse prn </= 7 hgb
follow with PCP upon d/c
#Mild AST elevation
2/2 alcohol abuse vs post-traumatic hematoma in the L hip
#Vit D deficiency
replete
#Nicotine dependency
Nicoderm
counselled on cessation
#Sinus tachy
2/2 withdrawal and possibly Ritalin versus anemia
Can restart Ritalin if heart rate improves.
Hypokalemia
replete/monitor
DVT ppx on lovenox
PT/OT-Acute rehab. PMR consulted recs SNF. CM aware. Await placement. Medically stable.
Anticipated Discharge: Within 24 hours
Subjective/Interval History
-
Date of Service: June 19, 2024
tolerating diet
states pain is controlled
having bm
Objective Data
-
Labs:
Laboratory Results
06/19/24
04:44
WBC 7.7
Hgb 8.6 L
Hct 26.4 L
Plt Count 301
Vital Signs:
Vital Signs
Temp Pulse Resp BP Pulse Ox
98.7 F 88 16 129/89 96
06/19/24 07:00 06/19/24 07:00 06/19/24 07:00 06/19/24 07:00 06/19/24 07:00
I&O
06/18/24 06/19/24 06/20/24
06:59 06:59 06:59
Intake Total 2099 1560 / 1560
Balance 2099 1560 / 1560
Physical Exam
-
General: Well Developed, Well Nourished and No Apparent Distress
HEENT: Normocephalic, Atraumatic and Moist Mucous Membranes
Respiratory: Clear to Auscultation
Cardiac: Regular Rhythm, S1/S2 and Tachycardic
GI: Soft, Nontender and Nondistended
Rectal: Deferred by Provider
Genito-urinary: Negative Velez
Skin: Warm and Other (bruising in L hip)
Neuro: Awake, Alert, Oriented, AO x 3 and Tremors
Psych: Calm
[2024-06-19] MEDS: ROXICODONE 10 MG PO ×2 (12:29→22:57)
--- NOTE | 2024-06-19 14:39 | CM ---
Case management following for discharge planning
PT/OT recs - acute rehab
PM&R eval - SNF
Discussed with pt. Given choice list to review
Prefers [facility] [place]
Referrals sent in [facility]
Will need auth
Plan - SNF when bed and auth obtained
[2024-06-19 16:00] VITALS: BP 151/81
[2024-06-19 23:09] VITALS: BP 131/83
[2024-06-20 06:34] LABS: % Basophils 0.8 % (0-2); % Eosinophils 3.6 % (0-6); % Immature Granulocytes 4.5 % (0-0.5); % Lymphocytes 20.8 % (20.5-51.1); % Monocytes 6.8 % (1.7-9.3); % Neutrophils 63.5 % (42.2-75.2); Absolute Basophils 0.1 10^3/uL (0-0.2); Absolute Eosinophils 0.3 10^3/uL (0-0.7); Absolute Immature Granulocytes 0.3 10^3/uL (0-0.05); Absolute Lymphocytes 1.6 10^3/uL (1.2-3.4); Absolute Monocytes 0.5 10^3/uL (0.1-0.6); Absolute Neutrophils 4.8 10^3/uL (1.4-6.5); Hematocrit 26.8 % (37.0-47.0); Hemoglobin 8.8 g/dL (12.0-16.0); Mean Corp Hgb Conc. 32.8 g/dL (33.0-37.0); Mean Corpuscular Hgb 30.8 pg (27.0-31.0); Mean Corpuscular Volume 93.7 fL (81.0-99.0); Mean Platelet Volume 10.4 fL (7.4-10.4); Nucleated Red Blood Cells % 0 %; Platelet Count 312 10^3/uL (130-400); Red Blood Cell Count 2.86 10^6/uL (4.20-5.40); Red Cell Dist. Width 14.3 % (11.5-14.5); White Blood Cell Count 7.5 10^3/uL (4.8-10.8)
[2024-06-20 07:36] VITALS: BP 139/85
[2024-06-20] MEDS: METHADONE 100 MG/10 ML 88 MG PO (07:57)
[2024-06-20] MEDS: FOLVITE 1 MG PO (07:58)
[2024-06-20] MEDS: COLACE 100 MG PO ×2 (07:58→19:53)
[2024-06-20] MEDS: VITAMIN B1 100 MG PO ×2 (07:58→19:53)
[2024-06-20] MEDS: LOVENOX 30 MG SC (07:58)
[2024-06-20] MEDS: VITAMIN D3 (cholecalciferol) 25 MCG PO (07:58)
[2024-06-20] MEDS: PROTONIX 40 MG PO ×2 (07:58→19:53)
[2024-06-20] MEDS: TYLENOL 1000 MG PO ×3 (07:58→21:41)
[2024-06-20] MEDS: ARICEPT 5 MG PO (07:58)
[2024-06-20] MEDS: MIRALAX 17 GRAMS PO (07:59)
[2024-06-20] MEDS: NICODERM TRANSDERMAL 14 MG TRANSDERM (07:59)
[2024-06-20] MEDS: METAMUCIL, KONSYL PO (08:00)
[2024-06-20] MEDS: PREPARATION H MAX STRENGTH PAIN RELIEF CREAM RECTAL (08:00)
[2024-06-20] MEDS: ATIVAN 0.5 MG PO (10:58)
--- NOTE | 2024-06-20 11:46 | W.PN.HOSP.TC ---
Today's Communication/Plan
-
await placement to SNF
Assessment / Plan
Assessment / Plan
43yo F with PMHx of heroin abuse now on methadone, alcohol abuse came with L femoral Fx
Had L hip pain started days ago after she found her leg caught in between ottoman and sofa while sleeping, now before admission felt pop while walking and could not bear weight with pain anymore on her LLE. Drinking 6-packs nightly
S/P L femoral ORIF on 06/15/24, developed postOP hgb drop with some bright red blood per rectum
A/P:
#Acute traumatic comminuted transcervical fracture of the L femoral neck, traumatic, unclear if underlying osteoporosis
Pain mgmt
Ortho s/p OR on 06/14/24 - Lovenox BID for 4 weeks. Counseled patient to be compliant with medication to prevent DVT. Pt verbalized understanding.
Outpatient bone scan with PCP advised - patient verbalized understanding
bowel regimen
PMR recs SNF. CM aware.
#Alcohol use disorder with withdrawal
Thiamine/Folate
DC MSAS now. has been stable now.
tolerating diet. No tremors noted
follow and replete electrolytes
#Opioid replacement therapy
# Chronic opioid dependent on daily basis
#ADHD
Continue methadone. Bowel regimen adjusted.
Restart Ritalin home regimen takes 20mg BID 8am/1pm. HR stable.
#mild anemia with most likely hemorrhoidal bleed 2/2 constipation
#Acute blood loss anemia likely multifactorial secondary to surgery and hemorrhoidal bleeding
Laxatives
PPI
prep H added
trend Hgb. Transfuse prn </= 7 hgb
follow with PCP upon d/c
#Mild AST elevation
2/2 alcohol abuse vs post-traumatic hematoma in the L hip
#Vit D deficiency
replete
#Nicotine dependency
Nicoderm
counselled on cessation
#Sinus tachy
2/2 withdrawal and possibly Ritalin versus anemia
Can restart Ritalin if heart rate improves.
Hypokalemia
replete/monitor
DVT ppx on lovenox
PT/OT-Acute rehab. PMR consulted recs SNF. CM aware. Await placement. Medically stable.
Anticipated Discharge: Today
Subjective/Interval History
-
Date of Service: June 20, 2024
intermittent hip pain
Objective Data
-
Labs:
Laboratory Results
06/20/24
05:03
WBC 7.5
Hgb 8.8 L
Hct 26.8 L
Plt Count 312
Vital Signs:
Vital Signs
Temp Pulse Resp BP Pulse Ox
98.5 F 88 18 139/85 97
06/20/24 07:36 06/20/24 07:36 06/20/24 07:36 06/20/24 07:36 06/20/24 07:36
I&O
06/19/24 06/20/24 06/21/24
06:59 06:59 06:59
Intake Total 1560 / 1560 1200 / 1200
Balance 1560 / 1560 1200 / 1200
Physical Exam
-
General: Well Developed, Well Nourished and No Apparent Distress
HEENT: Normocephalic, Atraumatic and Moist Mucous Membranes
Respiratory: Clear to Auscultation
Cardiac: Regular Rhythm, S1/S2 and Tachycardic
GI: Soft, Nontender and Nondistended
Rectal: Deferred by Provider
Genito-urinary: Negative Velez
Skin: Warm and Other (bruising in L hip)
Neuro: Awake, Alert, Oriented, AO x 3 and Tremors
Psych: Calm
[2024-06-20] MEDS: RITALIN 20 MG PO (12:44)
[2024-06-20 13:35] VITALS: BP 128/85; PULSE 90
--- NOTE | 2024-06-20 14:46 | CM ---
Case management following for discharge planning
Pt for SNF at discharge
No accepting facilities
Per Elinor at [facility] - facilities can not accept pts receiving Methadone
Spoke with Jennie at [facility]. May be able to accept. Would need more info regarding pts methadone clinic and how to obtain med while pt would be at SNF
Spoke with pt - reports her [facility] located in [place]. Pt reporting she will contact her counselor at the clinic to update as to current situation and possibility of alternate distribution of medication
Spoke with Jennie - dl. Phone number for DON at [facility] [phone] if needed to facilitate medication distribution
Will need auth
Plan - anticipate snf at discharge
[2024-06-20 15:23] VITALS: BP 123/84
--- NOTE | 2024-06-20 15:29 | PTCARENOTE ---
Patients hr during routine vitals was 130. Checked apically and it was 130. Dr. Merlos made aware and stated it may be from the Ritalin and place patient on tele. Will continue to monitor.
[2024-06-20] MEDS: ROXICODONE 10 MG PO (16:53)
[2024-06-20] MEDS: PREPARATION H MAX STRENGTH PAIN RELIEF CREAM 1 APPLIC RECTAL (19:53)
[2024-06-20 19:56] VITALS: BP 130/95
[2024-06-20] MEDS: ROXICODONE 5 MG PO (22:18)
[2024-06-20 23:11] VITALS: BP 124/82
[2024-06-21 03:07] VITALS: BP 126/78
[2024-06-21 07:10] VITALS: BP 115/79
[2024-06-21] MEDS: VITAMIN D3 (cholecalciferol) 25 MCG PO (07:31)
[2024-06-21] MEDS: MIRALAX 17 GRAMS PO (07:31)
[2024-06-21] MEDS: NICODERM TRANSDERMAL 14 MG TRANSDERM (07:31)
[2024-06-21] MEDS: TYLENOL 1000 MG PO ×3 (07:31→22:13)
[2024-06-21] MEDS: VITAMIN B1 100 MG PO ×2 (07:31→20:18)
[2024-06-21] MEDS: PROTONIX 40 MG PO ×2 (07:31→20:18)
[2024-06-21] MEDS: FOLVITE 1 MG PO (07:31)
[2024-06-21] MEDS: METHADONE 100 MG/10 ML 88 MG PO (07:31)
[2024-06-21] MEDS: COLACE 100 MG PO ×2 (07:31→20:18)
[2024-06-21] MEDS: ARICEPT 5 MG PO (07:32)
[2024-06-21] MEDS: METAMUCIL, KONSYL PO (07:32)
[2024-06-21] MEDS: PREPARATION H MAX STRENGTH PAIN RELIEF CREAM RECTAL ×2 (07:32→20:18)
[2024-06-21] MEDS: ATIVAN 0.5 MG PO (08:52)
[2024-06-21 11:40] VITALS: BP 111/79
--- NOTE | 2024-06-21 11:50 | W.PN.HOSP.TC ---
Today's Communication/Plan
-
await placement
cont pain control
bowel regimen
Assessment / Plan
Assessment / Plan
43yo F with PMHx of heroin abuse now on methadone, alcohol abuse came with L femoral Fx
Had L hip pain started days ago after she found her leg caught in between ottoman and sofa while sleeping, now before admission felt pop while walking and could not bear weight with pain anymore on her LLE. Drinking 6-packs nightly
S/P L femoral ORIF on 06/15/24, developed postOP hgb drop with some bright red blood per rectum
A/P:
#Acute traumatic comminuted transcervical fracture of the L femoral neck, traumatic, unclear if underlying osteoporosis
Pain mgmt
Ortho s/p OR on 06/14/24 - Lovenox BID for 4 weeks. Counseled patient to be compliant with medication to prevent DVT. Pt verbalized understanding.
Outpatient bone scan with PCP advised - patient verbalized understanding
bowel regimen
PMR recs SNF. CM aware.
#Alcohol use disorder with withdrawal
Thiamine/Folate
DC MSAS now. has been stable now.
tolerating diet. No tremors noted
follow and replete electrolytes
#Opioid replacement therapy
# Chronic opioid dependent on daily basis
#ADHD
Continue methadone. Bowel regimen adjusted.
DCed Ritalin due to persistent sinus tachycardia-Pt agreed with plan and verbalized understanding.
#mild anemia with most likely hemorrhoidal bleed 2/2 constipation
#Acute blood loss anemia likely multifactorial secondary to surgery and hemorrhoidal bleeding
Laxatives
PPI
prep H added
trend Hgb. Transfuse prn </= 7 hgb
follow with PCP upon d/c
#Mild AST elevation
2/2 alcohol abuse vs post-traumatic hematoma in the L hip
#Vit D deficiency
replete
#Nicotine dependency
Nicoderm
counselled on cessation
#Sinus tachy
2/2 withdrawal and possibly Ritalin versus anemia
Hypokalemia
replete/monitor
DVT ppx on lovenox
PT/OT-Acute rehab. PMR consulted recs SNF. CM aware. Await placement. Medically stable.
Anticipated Discharge: Today
Subjective/Interval History
-
Date of Service: June 21, 2024
walking round with walker
Objective Data
-
Vital Signs:
Vital Signs
Temp Pulse Resp BP Pulse Ox
98.2 F 97 16 115/79 97
06/21/24 07:10 06/21/24 07:10 06/21/24 07:10 06/21/24 07:10 06/21/24 07:10
I&O
06/20/24 06/21/24 06/22/24
06:59 06:59 06:59
Intake Total 1200 / 1200 1680 / 1680 240 / 240
Balance 1200 / 1200 1680 / 1680 240 / 240
[2024-06-21] MEDS: DRISDOL (VITAMIN D2) 50000 UNITS PO (13:19)
[2024-06-21] MEDS: ROXICODONE 10 MG PO ×2 (13:20→20:20)
--- NOTE | 2024-06-21 14:50 | CM ---
Case management following for discharge planning
Chart reviewed
Pt for SNF at discharge
Spoke with pt regarding SNF placement. Pt receiving Methadone - Obtains medication at [facility] located in [place]. Pt messaged her counselor - requesting fax number for CM - will send release forms for pt to sign.
Fax not received - checked back with pt. Per pt she received message from counselor requesting facility call to obtain consent
Clinic currently closed. . To reopen at 7AM
Spoke with Jennie at [facility]. Given phone number and information - will call in AM
[facility] can accept if able to coordinate methadone for pt with clinic
Will need auth
Plan - anticipate transfer to [facility] when medication administration coordinated with pts outpatient clinic and auth obtained
[2024-06-21 15:35] VITALS: BP 110/77
[2024-06-21 19:52] VITALS: BP 135/78
[2024-06-21] MEDS: MELATONIN 5 MG PO (22:13)
[2024-06-21 22:50] VITALS: BP 123/74
[2024-06-22 03:00] VITALS: BP 111/72
[2024-06-22 07:42] VITALS: BP 123/75
[2024-06-22] MEDS: PROTONIX 40 MG PO ×2 (07:56→19:45)
[2024-06-22] MEDS: VITAMIN D3 (cholecalciferol) 25 MCG PO (07:56)
[2024-06-22] MEDS: VITAMIN B1 100 MG PO ×2 (07:56→19:45)
[2024-06-22] MEDS: ARICEPT 5 MG PO (07:56)
[2024-06-22] MEDS: TYLENOL 1000 MG PO ×3 (07:56→21:12)
[2024-06-22] MEDS: NICODERM TRANSDERMAL 14 MG TRANSDERM (07:56)
[2024-06-22] MEDS: FOLVITE 1 MG PO (07:57)
[2024-06-22] MEDS: COLACE 100 MG PO ×2 (07:57→19:45)
[2024-06-22] MEDS: MIRALAX 17 GRAMS PO (07:57)
[2024-06-22] MEDS: METHADONE 100 MG/10 ML 88 MG PO (07:57)
[2024-06-22] MEDS: METAMUCIL, KONSYL PO (07:57)
[2024-06-22] MEDS: PREPARATION H MAX STRENGTH PAIN RELIEF CREAM RECTAL ×2 (09:37→20:25)
--- NOTE | 2024-06-22 10:18 | W.PN.HOSP.TC ---
Today's Communication/Plan
-
await placement
dispo difficulty due to methadone at SNF
ongoing process
CM aware.
Assessment / Plan
Assessment / Plan
43yo F with PMHx of heroin abuse now on methadone, alcohol abuse came with L femoral Fx
Had L hip pain started days ago after she found her leg caught in between [email or web address] and [employer] while sleeping, now before admission felt pop while walking and could not bear weight with pain anymore on her LLE. Drinking 6-packs nightly
S/P L femoral ORIF on 06/15/24, developed postOP hgb drop with some bright red blood per rectum
A/P:
#Acute traumatic comminuted transcervical fracture of the L femoral neck, traumatic, unclear if underlying osteoporosis
Pain mgmt
Ortho s/p OR on 06/14/24 - Lovenox BID for 4 weeks. Counseled patient to be compliant with medication to prevent DVT. Pt verbalized understanding.
Outpatient bone scan with PCP advised - patient verbalized understanding
bowel regimen
PMR recs SNF. CM aware.
#Alcohol use disorder with withdrawal
Thiamine/Folate
DC MSAS now. has been stable now.
tolerating diet. No tremors noted
follow and replete electrolytes
#Opioid replacement therapy
# Chronic opioid dependent on daily basis
#ADHD
Continue methadone. Bowel regimen adjusted.
DCed Ritalin due to persistent sinus tachycardia-Pt agreed with plan and verbalized understanding.
#mild anemia with most likely hemorrhoidal bleed 2/2 constipation
#Acute blood loss anemia likely multifactorial secondary to surgery and hemorrhoidal bleeding
Laxatives
PPI
prep H added
trend Hgb. Transfuse prn </= 7 hgb
follow with PCP upon d/c
#Mild AST elevation
2/2 alcohol abuse vs post-traumatic hematoma in the L hip
#Vit D deficiency
replete
#Nicotine dependency
Nicoderm
counselled on cessation
#Sinus tachy
2/2 withdrawal and possibly Ritalin versus anemia
Hypokalemia
replete/monitor
DVT ppx on lovenox
PT/OT-Acute rehab. PMR consulted recs SNF. CM aware. Await placement. Medically stable.
Anticipated Discharge: Today
Subjective/Interval History
-
Date of Service: June 22, 2024
tolerating diet
HR improved
Objective Data
-
Vital Signs:
Vital Signs
Temp Pulse Resp BP Pulse Ox
98.5 F 89 18 123/75 96
06/22/24 07:42 06/22/24 07:42 06/22/24 07:42 06/22/24 07:42 06/22/24 07:42
I&O
06/21/24 06/22/24 06/23/24
06:59 06:59 06:59
Intake Total 1680 / 1680 1760 / 1760
Balance 1680 / 1680 1760 / 1760
Physical Exam
-
General: Well Developed, Well Nourished and No Apparent Distress
HEENT: Normocephalic, Atraumatic and Moist Mucous Membranes
Respiratory: Clear to Auscultation
Cardiac: Regular Rhythm, S1/S2 and Tachycardic
GI: Soft, Nontender and Nondistended
Rectal: Deferred by Provider
Genito-urinary: Negative Velez
Skin: Warm and Other (bruising in L hip/aquacell dressing noted )
Neuro: Awake, Alert, Oriented and AO x 3
Psych: Calm
--- NOTE | 2024-06-22 10:35 | CM ---
CM called [facility] this am for follow up regarding consent/release forms which have not been received. Clinic is closed; phone [phone]. Will continue attempts to reach clinic throughout the day.
[2024-06-22 11:25] VITALS: BP 127/68
[2024-06-22] MEDS: LOVENOX 30 MG SC ×2 (12:09→19:45)
[2024-06-22] MEDS: ROXICODONE 10 MG PO ×2 (12:09→18:29)
[2024-06-22 15:37] VITALS: BP 126/74
--- NOTE | 2024-06-22 15:40 | PTCARENOTE ---
Patient received from off going RN; Patient awake and alert to self, place, and time; threat monitoring analyst on, normal sinus rhythm currently; Patient on room air, lungs clear to auscultation, diminished at bases; Patient denies N/V at this time; Left
hip dressing with small amount of drainage, ecchymosis soft to palpation; Patient states pain in left hip is mild and achy but tolerable; Care ongoing
[2024-06-22 19:06] VITALS: BP 132/76
[2024-06-22] MEDS: MELATONIN 5 MG PO (21:12)
[2024-06-22 23:16] VITALS: BP 125/74
[2024-06-23 03:20] VITALS: BP 112/68
[2024-06-23] MEDS: ROXICODONE 10 MG PO ×2 (04:49→13:03)
[2024-06-23 07:00] VITALS: BP 120/76
[2024-06-23] MEDS: PREPARATION H MAX STRENGTH PAIN RELIEF CREAM RECTAL (07:54)
[2024-06-23] MEDS: METHADONE 100 MG/10 ML 88 MG PO (07:58)
[2024-06-23] MEDS: VITAMIN D3 (cholecalciferol) 25 MCG PO (07:58)
[2024-06-23] MEDS: TYLENOL 1000 MG PO ×2 (07:58→15:03)
[2024-06-23] MEDS: COLACE 100 MG PO (07:58)
[2024-06-23] MEDS: PROTONIX 40 MG PO (07:58)
[2024-06-23] MEDS: ARICEPT 5 MG PO (07:58)
[2024-06-23] MEDS: VITAMIN B1 100 MG PO (07:58)
[2024-06-23] MEDS: NICODERM TRANSDERMAL 14 MG TRANSDERM (07:59)
[2024-06-23] MEDS: MIRALAX 17 GRAMS PO (07:59)
[2024-06-23] MEDS: METAMUCIL, KONSYL PO (07:59)
[2024-06-23] MEDS: FOLVITE 1 MG PO (07:59)
[2024-06-23] MEDS: LOVENOX 30 MG SC ×2 (08:00→17:07)
[2024-06-23 11:00] VITALS: BP 118/74
--- NOTE | 2024-06-23 11:23 | W.PN.HOSP.TC ---
Today's Communication/Plan
-
await placement
coordination with CM/SNF/Methadone clinic
check labs
Assessment / Plan
Assessment / Plan
43yo F with PMHx of heroin abuse now on methadone, alcohol abuse came with L femoral Fx
Had L hip pain started days ago after she found her leg caught in between [employer] and sofa while sleeping, now before admission felt pop while walking and could not bear weight with pain anymore on her LLE. Drinking 6-packs nightly
S/P L femoral ORIF on 06/15/24, developed postOP hgb drop with some bright red blood per rectum
A/P:
#Acute traumatic comminuted transcervical fracture of the L femoral neck, traumatic, unclear if underlying osteoporosis
Pain mgmt
Ortho s/p OR on 06/14/24 - Lovenox BID for 4 weeks. Counseled patient to be compliant with medication to prevent DVT. Pt verbalized understanding.
Outpatient bone scan with PCP advised - patient verbalized understanding
bowel regimen
PMR recs SNF. CM aware.
#Alcohol use disorder with withdrawal
Thiamine/Folate
DC MSAS now. has been stable now.
tolerating diet. No tremors noted
follow and replete electrolytes
# Opioid replacement therapy
# Chronic opioid dependent on daily basis
#ADHD
Continue methadone. Bowel regimen adjusted. Pt methadone clinic closed on monday
DCed Ritalin due to persistent sinus tachycardia-Pt agreed with plan and verbalized understanding.
#mild anemia with most likely hemorrhoidal bleed 2/2 constipation
#Acute blood loss anemia likely multifactorial secondary to surgery and hemorrhoidal bleeding
Laxatives
PPI
prep H added
trend Hgb. Transfuse prn </= 7 hgb
follow with PCP upon d/c
#Mild AST elevation
2/2 alcohol abuse vs post-traumatic hematoma in the L hip
#Vit D deficiency
replete
#Nicotine dependency
Nicoderm
counselled on cessation
#Sinus tachy
2/2 withdrawal and possibly Ritalin versus anemia
Hypokalemia
replete/monitor
DVT ppx on lovenox
PT/OT-Acute rehab. PMR consulted recs SNF. CM aware. Await placement. Medically stable.
Anticipated Discharge: Within 24 hours
Subjective/Interval History
-
Date of Service: June 23, 2024
States of mild hip pain today
tolerating diet
Objective Data
-
Vital Signs:
Vital Signs
Temp Pulse Resp BP Pulse Ox
98.4 F 90 18 120/76 97
06/23/24 07:00 06/23/24 07:00 06/23/24 07:00 06/23/24 07:00 06/23/24 07:00
I&O
06/22/24 06/23/24 06/24/24
06:59 06:59 06:59
Intake Total 1760 / 1760 1360 / 1360
Balance 1760 / 1760 1360 / 1360
Physical Exam
-
General: Well Developed, Well Nourished and No Apparent Distress
HEENT: Normocephalic, Atraumatic and Moist Mucous Membranes
Respiratory: Clear to Auscultation
Cardiac: Regular Rhythm, S1/S2 and Tachycardic
GI: Soft, Nontender and Nondistended
Rectal: Deferred by Provider
Genito-urinary: Negative Velez
Skin: Warm and Other (bruising in L hip/aquacell dressing noted )
Neuro: Awake, Alert, Oriented and AO x 3
Psych: Calm
[2024-06-23 12:07] VITALS: BP 146/86; PULSE 107; O2SAT 97
[2024-06-23 15:05] VITALS: BP 116/59
--- NOTE | 2024-06-23 15:37 | CM ---
Multiple attempts to reach the [facility] over the past 2 days. provided message that the clinic is closed.
--- NOTE | 2024-06-23 16:24 | CM ---
notified by Dr. Merlos that Sanam can be discharged to home with home care services per recommendation of PT/OT. I contacted [facility] for a walker to be delivered to the room prior to discharge.
I spoke to Sanam about discharge and she is happy to be going home. She will be able to return to the Methadone clinic with a copy of her discharge instructions.
Plan: Discharge to home today with VN. Sanam will contact family for a ride home.
[2024-06-23 16:58] VITALS: BP 119/82
--- NOTE | 2024-06-23 17:13 | PTCARENOTE ---
Shayne teaching completed with patient; Patient demonstrated appropriate technique and verbalized understanding
== END 2024-06-23 17:30 | disposition home health service (06) | DRG 481 ==
LOC: 2 SOUTH 14:11
PROVIDERS: Internal Medicine; Nurse Practitioner Gerontology; Physician Assistant Medical; ADMITTING PHYSICIAN Student in an Organized Health Care Education/Training Program; ATTENDING PHYSICIAN Hospitalist; CONSULT PHYSICIAN Internal Medicine Gastroenterology; CONSULT PHYSICIAN Physical Medicine & Rehabilitation; EMERGENCY PHYSICIAN Emergency Medicine; FAMILY PHYSICIAN Family Medicine; OTHER PHYSICIAN Student in an Organized Health Care Education/Training Program
PROC: 0QS704Z Reposition Left Upper Femur with Internal Fixation Device, Open Approach (ICD-10-PCS; 2024-06-14)
DX: S72.032A Displaced midcervical fracture of left femur, initial encounter for closed fracture (principal); D62 Acute posthemorrhagic anemia; F11.20 Opioid dependence, uncomplicated; F17.203 Nicotine dependence unspecified, with withdrawal; K62.5 Hemorrhage of anus and rectum; F10.239 Alcohol dependence with withdrawal, unspecified; F31.9 Bipolar disorder, unspecified; E66.9 Obesity, unspecified; Z68.34 Body mass index [BMI] 34.0-34.9, adult; W19.XXXA Unspecified fall, initial encounter; F41.9 Anxiety disorder, unspecified; F90.9 Attention-deficit hyperactivity disorder, unspecified type; K64.9 Unspecified hemorrhoids; K59.00 Constipation, unspecified; R03.0 Elevated blood-pressure reading, without diagnosis of hypertension; E87.6 Hypokalemia; Z79.899 Other long term (current) drug therapy; Z86.19 Personal history of other infectious and parasitic diseases
CPT/HCPCS: 72192; 73502; 76000; 80048; 80053; 82248; 82306; 83735; 84100; 84703; 85014; 85018; 85025; 85027; 85610; 85730; 86803; 93005; 96372; 97110; 97116; 97162; 97166; 97530; 97535; 99285; 99406; C1713

== ENCOUNTER 2025-04-06 15:04 | Emergency (ER) | payer OTHER, SELFPAY ==
[2025-04-06 15:07] VITALS: BP 149/108
[2025-04-06 15:35] LABS: Hematocrit 33.8 % (37.0-47.0); Hemoglobin 11.1 g/dL (12.0-16.0); Mean Corp Hgb Conc. 32.8 g/dL (33.0-37.0); Mean Corpuscular Volume 88.7 fL (81.0-99.0); Nucleated Red Blood Cells % 0 %; Platelet Count 254 10^3/uL (130-400); Red Cell Dist. Width 15.9 % (11.5-14.5)
[2025-04-06 15:42] LABS: HCG, Serum Qualitative Screen Negative
[2025-04-06 15:46] LABS: ALT (SGPT) 22 U/L (0-35); AST (SGOT) 121 U/L (14-36); Albumin 4.0 g/dl (3.5-5.0); Alkaline Phosphatase 183 U/L (38-126); Blood Urea Nitrogen 2 mg/dl (7-17); Calcium 8.3 mg/dl (8.4-10.2); Carbon Dioxide 25 mmol/L (22-30); Chloride 101 mmol/L (98-107); Glucose 210 mg/dl (70-99); Potassium 3.7 mmol/L (3.5-5.1); Sodium 136 mmol/L (135-145); Total Protein 7.9 g/dl (6.3-8.2); eGFR > 60.00
[2025-04-06 16:20] LABS: Troponin I < 0.012 ng/ml
[2025-04-06 16:45] VITALS: BMI 33.4
[2025-04-06 17:41] LABS: Urine Character Clear (Clear)
[2025-04-06 17:53] LABS: Urine Red Blood Cell 0-2 /HPF (0-2); Urine Squamous Cell >30 /LPF (Few); Urine White Cell 0-2 /HPF (0-5)
[2025-04-06 18:00] VITALS: BP 139/86
--- NOTE | 2025-04-06 20:22 | ED.GENMED ---
History of Present Illness
General
Chief Complaint: Cardiac Symptoms
Source: patient
Exam Limitations: none
Time Seen by Provider: 04/06/25 16:21
Nursing documentation reviewed up to this point in time: agreed with
History of Present Illness
History of Present Illness:
Patient to ED wtih complaitn of abdominal pain, lump above umbilicus, left lateral chert pain from vomiting last week. Brought self to ED for eval. She denies fever/chills. NO further n/v. No diarrhea.
Past History
Past History
ED Past Medical History: None
ED Past Surgical History: None
Social History
Tobacco: Non-smoker
Alcohol: Daily
Drug: None
Review of Systems
Review of Systems
Allergies reviewed?: Yes
All Other Systems: ROS reviewed and negative except as documented in HPI and ROS
Constitutional: Reports no symptoms
EENT: Reports no symptoms
Respiratory: Reports no symptoms
Cardiac: Reports no symptoms
ABD/GI: Reports abdominal pain
Musculoskeletal: Reports no symptoms
Skin: Reports no symptoms
Neurological: Reports no symptoms
Psychiatric: Reports no symptoms
Phy Exam
General Physical Exam
General Presentation: well appearing and no apparent distress
General age: appears stated age
General Skin: warm and dry
General Habitus: normal
General Mental: alert
Cardiovascular Exam
Cardiovascular Exam: regular rate/rhythm and no edema
Pulmonary Exam
Pulmonary Exam: lungs clear and no respiratory distress
Gastrointestinal Exam
Gastrointestinal Exam: normal bowel sounds, soft, no organomegaly, no pulsatile mass, non distended, no cva tenderness and other (no hernia noted on exam)
Palpation: generalized: Mild tenderness
Neurological Exam
Neurological Exam: alert, oriented x3, CN II-XII intact, no motor deficits, no sensory deficits and speech normal
Musculoskeletal Exam
Musculoskeletal Exam: full ROM and neuro vasc intact
Skin Exam
Skin Exam: normal color, warm/dry and no rash
Psychiatric Exam
Psychiatric Exam: normal mood/affect
Course
Orders/Labs/Results
Orders:
Orders
04/06/25 15:11
Electrocardiogram (*1) Urgent
Reason for Study: Chest Pain
EKG- Treatment ONCE
Test Result ONCE
04/06/25 15:24
Complete Blood Count/With Diff Urgent
Comprehensive Metabolic Panel Urgent
HCG, Serum Qualitative Screen Urgent
NT-proBNP Urgent
Troponin I Urgent
04/06/25 16:47
CT Abd/pelvis W Iv Cont Urgent
Comment:
Reason For Exam: periumbilical pain, vomiting.
CR Chest - 2 Views Urgent
Comment:
Reason For Exam: SOB
04/06/25 17:32
Urinalysis Reflex To Culture Urgent
Date Specimen was Collected: 04/06/25
Time Specimen was Collected: 17:30
Urine Microscopic Reflex Cult Urgent
Abnormal Lab Results
04/06/25 04/06/25
15:24 17:32
RBC 3.81 L 10^6/uL
(4.20-5.40)
Hgb 11.1 L g/dL
(12.0-16.0)
Hct 33.8 L %
(37.0-47.0)
MCHC 32.8 L g/dL
(33.0-37.0)
RDW 15.9 H %
(11.5-14.5)
Abs Immat Gran (auto) 0.1 H 10^3/uL
(0-0.05)
Absolute Neuts (auto) 7.6 H 10^3/uL
(1.4-6.5)
Immature Gran % 0.6 H %
(0-0.5)
Neutrophils % 75.9 H %
(42.2-75.2)
Lymphocytes % 14.4 L %
(20.5-51.1)
BUN 2 L mg/dl
(7-17)
Creatinine 0.4 L mg/dL
(0.6-1.0)
Glucose 210 H mg/dl
(70-99)
Calcium 8.3 L mg/dl
(8.4-10.2)
AST 121 H U/L
(14-36)
Alkaline Phosphatase 183 H U/L
(38-126)
Ur Occult Blood Reflex 4+ A
(Negative)
Urine Bacteria (Reflex) Few A
(Negative)
04/06/25 15:24
04/06/25 15:24
Vital Signs
Initial and Last Documented VS:
Initial Vital Signs
Temp Pulse Resp BP Pulse Ox
98.2 F 118 16 149/108 99
04/06/25 15:07 04/06/25 15:07 04/06/25 15:07 04/06/25 15:07 04/06/25 15:07
Last Documented Vital Signs
Temp Pulse Resp BP Pulse Ox
98.2 F 94 18 139/86 98
04/06/25 15:07 04/06/25 18:00 04/06/25 18:00 04/06/25 18:00 04/06/25 20:22
*Radiology
Radiology exam reviewed: radiology read reviewed
*Pulse Oximetry
SaO2: 98
Oxygen Mode of Delivery: Room air
Patient hypoxic: no
*Critical Care Note
Total Time (30-74mins, 75-104mins- exclusive of procedures): Not Applicable
ED Attending Note
-
Portions of this chart may have been created with voice recognition software.� Occasional wrong word or��sound alike� substitutions may have occurred due to the inherent limitations of voice recognition software.
Discharge Plan
Departure
Patient Disposition: Home (Routine Discharge)
Date of Disposition: 04/06/25
Time of Disposition: 20:22
Patient with high blood pressure during this ER visit?: No
Condition: Good
Covid-19: Not Applicable
Discharge Problem:
Abdominal pain
Instructions: Abdominal pain in adults - Discharge instructions
Prescriptions:
No Action
donepezil 5 mg Tablet
5 mg PO DAILY
docusate sodium 100 mg Capsule
100 mg PO BID 10 Days Qty: 20 0RF
Metamucil Fiber (aspartame) 3.4 gram Powder In Packet
1 packet PO DAILY 30 Days Qty: 30 0RF
acetaminophen [Tylenol Extra Strength] 500 mg Tablet
1,000 mg PO TID 5 Days Qty: 30 0RF
cholecalciferol (vitamin D3) 25 mcg (1,000 unit) Tablet
25 mcg PO DAILY 30 Days Qty: 30 0RF
polyethylene glycol 3350 [HealthyLax] 17 gram Powder In Packet
17 g PO DAILY Qty: 14 0RF
melatonin 5 mg Tablet
5 mg PO HS PRN (Reason: sleep)
enoxaparin 30 mg/0.3 mL Syringe
30 mg SC Q12 18 Days Qty: 10.8 0RF
methadone 10 mg/5 mL Solution
88 mg
Referrals:
Ladarius Santoyo DO [Family Provider, Family Practice] - Tomorrow
Activity Restrictions/Additional Instructions:
Return to the emergency department immediately for any changes in/worsening of your symptoms.
Interventions
Interventions:
*Risk Screen - Suicide Last Done: 04/06/25 15:10
*General Assessment Last Done: 04/06/25 16:42
*Neglect/Abuse Screening Last Done: 04/06/25 15:10
*ED- Fall Risk Assessment Last Done: 04/06/25 16:46
*ED COVID-19 Vaccine History Last Done: 04/06/25 16:46
*Nursing Disposition Last Done: 04/06/25 20:40
ED- Pulmonary Assessment Last Done: 04/06/25 16:40
ED- Cardiac Assessment Last Done: 04/06/25 16:41
Discharge Date and Time
Discharge Date/Time: 04/06/25 20:40
Print Language: SLOVENIAN
== END 2025-04-06 20:40 | disposition home or self-care (01) ==
LOC: EMR 15:04
PROVIDERS: Emergency Medicine; Nurse Practitioner; EMERGENCY PHYSICIAN Emergency Medicine; FAMILY PHYSICIAN Family Medicine
DX: R10.33 Periumbilical pain (principal); R07.9 Chest pain, unspecified; R06.02 Shortness of breath
CPT/HCPCS: 99285; 71046; 74177; 80053; 81003; 81015; 83880; 84484; 84703; 85025; 93005; Q9967